=== PATIENT | female | born 1935 | race Caucasian/White ===

== ENCOUNTER 2019-11-22 13:20 | Outpatient (REF) | payer MEDICARE, SELFPAY ==
--- NOTE | 2019-11-22 | MM_ITS ---
EXAMINATION: MM DIAGNOSTIC DIGITAL BREAST TOMOSYNTHESIS, BILATERAL CLINICAL INFORMATION: Invasive ductal cancer right breast status post lumpectomy 2017. Due for yearly. COMPARISON: Mammography: 11/04/2018, 08/19/2017, 03/12/2017, 06/26/2016, 05/26/2016, 05/21/2016 TECHNIQUE: Digital breast tomosynthesis is performed in both the craniocaudal and mediolateral oblique views along with computer-aided detection (CAD). Synthesized 2D images are generated from the tomosynthesis. Additional magnification right CC and magnification right ML views are obtained. FINDINGS: There are scattered areas of fibroglandular density (ACR BI-RADS breast composition Category b). There are post therapy changes right breast with mild reduced breast size and stable scarring. There is no recurrent mass or architectural abnormality. The left breast shows no significant changes from prior studies. There are bilateral vascular calcifications. Two groups of fine tightly grouped calcifications again seen on right adjacent to the vascular calcifications upper outer breast, similar to prior exams. Results are provided to the patient at time of visit by the technologist. IMPRESSION: No significant changes from prior studies. Post therapy changes right breast. ASSESSMENT: BI-RADS 2: Benign RECOMMENDATION: Routine annual mammography screening. This patient's information was entered into a reminder system with a target due date for their next mammogram.
== END 2019-11-22 13:21 | disposition home or self-care (01) ==
LOC: HO.MAMMO 13:20
PROVIDERS: PCP Internal Medicine; Visit Provider Internal Medicine
DX: C50.911 Malignant neoplasm of unspecified site of right female breast (principal)
CPT/HCPCS: 77062; 77066; 78013

== ENCOUNTER 2020-01-19 13:43 | Outpatient (REF) | payer MEDICARE, SELFPAY ==
[2020-01-19 13:59] LABS: MANUAL DIFF FLAG NO
[2020-01-19 14:12] LABS: Basophils Percent Auto 0.6 % (0-2); Eosinophils Absolute Auto 0.3 X10*3/uL (0.0-0.4); Eosinophils Percent Auto 4.7 % (0-4); Hematocrit 42.8 % (37-47); Hemoglobin 13.7 g/dl (12.0-16.0); Imm Gran Abs Auto 0.04 X10*3/uL (0.00-0.03); Imm Gran Pct Auto 0.6 % (0.0-0.4); Lymphocytes Absolute Auto 2.1 X10*3/uL (1.2-4.9); Lymphocytes Percent Auto 30.7 % (20-40); Mean Corpuscular Hemoglobin 30.1 pg (27.0-33.0); Mean Corpuscular Volume 94.1 fL (80-98); Monocytes Absolute Auto 0.7 X10*3/uL (0.1-1.2); Monocytes Percent Auto 10.3 % (2-11); Neutrophils Absolute Auto 3.6 X10*3/uL (2.0-8.3); Neutrophils Percent Auto 53.1 % (45-73); Platelet Count 254 X10*3/uL (160-400); Red Blood Count 4.55 X10*6/uL (4.20-5.50); Red Cell Distribution Width 13.7 % (11.0-16.0); White Blood Count 6.8 X10*3/uL (4.8-10.8)
[2020-01-19 14:24] LABS: Estimated Average Glucose 203 mg/dL; Hemoglobin A1c % 8.7 %
[2020-01-19 15:00] LABS: Alanine Aminotransferase 19 U/L (0-31); Albumin Level 4.1 g/dL (3.5-5.0); Alkaline Phosphatase 97 U/L (39-117); Anion Gap 14 (12-20); Aspartate Amino Transferase 19 U/L (5-31); Bilirubin Total 0.5 mg/dL (0.0-1.0); Blood Urea Nitrogen 18 mg/dL (9-16); Calcium 9.4 mg/dL (8.4-10.2); Carbon Dioxide 25 mmol/L (22-29); Chloride 105 mmol/L (96-108); Cholesterol 258 mg/dL; Estimated Glomerular Filt Rate 42; Glucose Fasting 129 mg/dL (60-99); HDL Cholesterol 67 mg/dL; LDL Cholesterol Calculated 164 mg/dl; Potassium 4.3 mmol/l (3.3-5.1); Sodium 140 mmol/L (135-145); Triglycerides 138 mg/dL
[2020-01-19 15:24] LABS: Thyroid Stimulating Hormone 3.35 uIU/mL (0.32-4.0)
== END 2020-01-19 13:44 | disposition home or self-care (01) ==
LOC: HO.LNP 13:43
PROVIDERS: Visit Provider Internal Medicine
DX: E11.9 Type 2 diabetes mellitus without complications (principal); N39.41 Urge incontinence; I10 Essential (primary) hypertension; E03.9 Hypothyroidism, unspecified; F51.01 Primary insomnia
CPT/HCPCS: 36415; 80053; 80061; 83036; 84443; 85025

== ENCOUNTER 2020-01-22 13:56 | Outpatient (REF) | payer MEDICARE, SELFPAY ==
[2020-01-22 14:06] LABS: Glucose Urine UA NEG (NEG); Leukocyte Esterase Urine 3+ (NEG); Nitrite Urine NEG (NEG); Urine Blood 2+ (NEG); Urine Ketones NEG (NEG); Urine Protein NEG (NEG-TRACE)
[2020-01-22 14:13] LABS: Appearance Urine CLEAR; Color Urine YELLOW
[2020-01-22 14:24] LABS: Bacteria Urine 4+ /LPF; Squamous Epithelial Cell Urine 1+ /LPF
[2020-01-22 14:33] LABS: Creatinine Urine 58.34 mg/dL; Microalbum/Creatinine Ratio Ur 152.5 ug/mg cr
== END 2020-01-22 13:57 | disposition home or self-care (01) ==
LOC: HO.LNP 13:56
PROVIDERS: Visit Provider Internal Medicine
DX: N39.0 Urinary tract infection, site not specified (principal); E11.9 Type 2 diabetes mellitus without complications
CPT/HCPCS: 81001; 81003; 82043; 87086

== ENCOUNTER 2020-05-15 14:57 | Outpatient (REF) | payer MEDICARE, SELFPAY | END 2020-05-15 14:58 | disposition home or self-care (01) | LOC: HO.LAB 14:57 | PROVIDERS: PCP Internal Medicine; Visit Provider Surgery | DX: C44.529 Squamous cell carcinoma of skin of other part of trunk (principal) | CPT/HCPCS: 11403; 11603; 88305; 99202 ==

== ENCOUNTER 2020-05-27 14:08 | Outpatient (REF) | payer MEDICARE, SELFPAY ==
[2020-05-27 14:12] LABS: MANUAL DIFF FLAG NO
[2020-05-27 14:20] LABS: Basophils Absolute Auto 0.1 X10*3/uL (0.0-0.2); Basophils Percent Auto 0.8 % (0-2); Eosinophils Absolute Auto 0.3 X10*3/uL (0.0-0.4); Eosinophils Percent Auto 3.4 % (0-4); Hematocrit 41.8 % (37-47); Hemoglobin 13.8 g/dl (12.0-16.0); Imm Gran Abs Auto 0.06 X10*3/uL (0.00-0.03); Imm Gran Pct Auto 0.8 % (0.0-0.4); Lymphocytes Absolute Auto 1.6 X10*3/uL (1.2-4.9); Lymphocytes Percent Auto 20.8 % (20-40); Mean Corpuscular Hemoglobin 30.1 pg (27.0-33.0); Mean Corpuscular Volume 91.1 fL (80-98); Monocytes Absolute Auto 0.7 X10*3/uL (0.1-1.2); Monocytes Percent Auto 8.9 % (2-11); Neutrophils Absolute Auto 5.2 X10*3/uL (2.0-8.3); Neutrophils Percent Auto 65.3 % (45-73); Platelet Count 285 X10*3/uL (160-400); Red Blood Count 4.59 X10*6/uL (4.20-5.50); Red Cell Distribution Width 13.5 % (11.0-16.0); White Blood Count 7.9 X10*3/uL (4.8-10.8)
[2020-05-27 15:05] LABS: Alanine Aminotransferase 19 U/L (0-31); Albumin Level 4.2 g/dL (3.5-5.0); Alkaline Phosphatase 88 U/L (39-117); Anion Gap 18 (12-20); Aspartate Amino Transferase 16 U/L (5-31); Bilirubin Total 0.7 mg/dL (0.0-1.0); Blood Urea Nitrogen 21 mg/dL (9-16); Calcium 9.2 mg/dL (8.4-10.2); Carbon Dioxide 20 mmol/L (22-29); Chloride 100 mmol/L (96-108); Estimated Glomerular Filt Rate 37; Glucose Random 293 mg/dL (60-115); Potassium 4.1 mmol/L (3.3-5.1); Sodium 134 mmol/L (135-145); Total Protein 7.4 g/dL (6.5-8.0)
== END 2020-05-27 14:09 | disposition home or self-care (01) ==
LOC: HO.LNP 14:08
PROVIDERS: Visit Provider Internal Medicine
DX: E11.9 Type 2 diabetes mellitus without complications (principal); N39.0 Urinary tract infection, site not specified; R41.0 Disorientation, unspecified; I10 Essential (primary) hypertension
CPT/HCPCS: 80053; 85025

== ENCOUNTER 2020-06-04 12:19 | Outpatient (REF) | payer SELFPAY | END 2020-06-04 12:20 | disposition home or self-care (01) | LOC: HO.HAP 12:19 | PROVIDERS: Visit Provider Internal Medicine | DX: Z46.1 Encounter for fitting and adjustment of hearing aid (principal) | CPT/HCPCS: 99499 ==

== ENCOUNTER 2020-07-02 13:34 | Outpatient (REF) | payer MEDICARE, SELFPAY ==
[2020-07-02 14:36] LABS: TSH reflex Free T4 2.83 uIU/mL (0.32-4.0)
== END 2020-07-02 13:35 | disposition home or self-care (01) ==
LOC: HO.LNP 13:34
PROVIDERS: Visit Provider Internal Medicine
DX: E03.9 Hypothyroidism, unspecified (principal)
CPT/HCPCS: 84443

== ENCOUNTER 2020-07-08 12:36 | Outpatient (REF) | payer MEDICARE, SELFPAY ==
--- NOTE | 2020-07-10 08:52 | MHC.AU.AHA ---
Adult Audiological Evaluation Date of Visit: 07/08/20 Reason for Appointment: History of hearing loss. Patient arrives to determine if there has been a change in hearing. Her daughter reports that the left hearing aid is no longer working. Previous Hearing Test Results: At this clinic on 07/13/2018- Moderate to severe sensorineural hearing loss bilaterally. Ear History: Recent Ear Pain: None Reported Recent Ear Infections: None Reported Medical History: Medical History: Diabetes, Hypertension Hearing Instrument History- Right Ear: Lacemaker: Phonak Model: [id number] Q50-312 Serial Number: [id number] Battery Size: 312 Repair Warranty: 04/14/2014 Loss and Damage Warranty: 04/14/2014 Dispensed By: [facility] Date of Fittin03/30/2012 Hearing Instrument History- Left Ear: Lacemaker: Phonak Model: Virto Q50-312 Serial Number: [id number] Battery Size: 312 Warranty: 04/14/2014 Loss and Damage Warranty: 04/14/2014 Dispensed By: [facility] Date of Fittin03/30/2012 Otoscopy: Right Ear: Unremarkable Left Ear: Unremarkable Hearing Evaluation: Transducer(s) Used: Circumaural Headphones Method: Conventional Audiometry Stimuli Used: Pure Tones Right Ear: Description of Hearing: Moderately-severe to severe sensorineural hearing loss Left Ear: Description of Hearing: Moderately-severe to severe sensorineural hearing loss Speech Recognition Threshold (SRT): Method Used: Recorded Lists Stimuli Used: Spondee Words Right Ear: 75 dBHL Left Ear: 75 dBHL Word Discrimination: Method: Recorded Lists Word Lists Used: NU-6 Right Ear: 76% at 90 dBHL Left Ear: 96% at 90 dBHL Most Comfortable Level (MCL): Right Ear: 90 dBHL Left Ear: 90 dBHL Aided Testing: Not performed today, as left hearing aid is not working Comparison: Compared to most recent evaluation: No significant changes noted. Recommendations: Audiological re-evaluation in one year. Patient's daughter reports that the left hearing aid is no longer working. It could be not inspected today, as it was not at the appointment. Hearing aid maintenance was performed on the right hearing aid. The right hearing aid is working, but is missing its program button and one of the microphone covers. The hearing aids are 8 years old, and no longer covered under the repair warranty. Patient appeared to be experiencing significant difficulty following along in conversation wearing only the right hearing aid. This may be, in part, because the word discrimination/clarity of the right ear is worse than the left (76% in the right versus 96% in the left). Resuming use of left-sided amplification is highly recommended, as the clarity is better in the left ear. Patient may be interested in obtaining a new pair of hearing aids, but was not ready to discuss this today. Brochures were provided on some of the latest models. If interested, they are welcome to schedule a hearing aid evaluation to further discuss hearing aid options. Diagnosis: Primary Diagnosis: H90.3 Bilateral Sensorineural Hearing Loss Services Performed: Comprehensive Audiological Evaluation (CPT 71040) Signature: Provider: David Loya, CCC-A
== END 2020-07-08 12:37 | disposition home or self-care (01) ==
LOC: HO.SH 12:36
PROVIDERS: Visit Provider Internal Medicine
DX: H90.3 Sensorineural hearing loss, bilateral (principal)
CPT/HCPCS: 92557

== ENCOUNTER 2020-07-19 14:38 | Outpatient (REF) | payer SELFPAY ==
--- NOTE | 2020-07-19 15:26 | MHC.AU.MED ---
Medical Clearance for Hearing Instrumentation Date: 07/19/20 Patient Name: Triny Bush Date of : 1935 Referring Provider: Virgil Saldana MD We have seen your patient on 07/19/20 and have determined that they are a candidate for amplification (See accompanying report). Specifically, they would benefit from: Hearing aid use in both ears There is a statute that addresses Medical Evaluation Requirements prior to fitting a patient with a hearing aid. According to [place] statute 265 CMR:6.03(1), (a) General. Except as provided in 265 CMR 6.03(1)(b), a mesh cutter shall not sell a hearing aid unless the prospective user has presented to the mesh cutter a written statement signed by a licensed physician that states that the patient's hearing loss has been medically evaluated and the patient may be considered a candidate for a hearing aid. The medical evaluation must have taken place within the preceding six months. Please note: Due to the [place] Statute referenced above, we cannot accept a signature other than that of a licensed physician. PROCESS CONTROL BOARD OPERATOR and PA signatures cannot be accepted. I am in agreement with the above recommendation. There is no medical contraindication for hearing instrumentation. Physician Signature Date Physician Name (Printed)
--- NOTE | 2020-07-19 17:11 | MHC.AU.HAS ---
Hearing Aid Evaluation Date of Visit: 07/19/20 Historical Information: Description of Hearing: Moderately severe to severe sensorineural hearing loss bilaterally. Current personal amplification information, if applicable: Phonak Virto Q50-312 Summary: Patient is interested in updated hearing aids. Her left aid doesn't work and the right aid is damaged. Would like to stay with a similar Phonak model with batteries. Hearing Aid Prescription: Based on the individual?s shared listening needs, communication environments, dexterity, desire for connectivity, and personal preferences, the following prescription for amplification has been made: Right ear: Stem Setter: Phonak Model: Virto M50-312 Battery Size: 312 Color: [place] Marketer: Super Power Left ear: Left ear prescription to be same as Right Hearing Aid above: Stem Setter: Phonak Model: Virto M50-312 Battery Size: 312 Color: [place] [employer] Marketer: Super power Plan of Care: Patient wishes to purchase hearing aids as prescribed Action Taken/Action Needed: [place] Impressions Taken. Hearing Fitting to be scheduled when materials arrive. Paid $350 deposit. Primary Diagnosis: H90.3 Bilateral Sensorineural Hearing Loss Signature: Provider: David Ford, CCC-A
== END 2020-07-19 14:39 | disposition home or self-care (01) ==
LOC: HO.HAP 14:38
PROVIDERS: Visit Provider Internal Medicine
DX: Z46.1 Encounter for fitting and adjustment of hearing aid (principal); H90.3 Sensorineural hearing loss, bilateral
CPT/HCPCS: 92591

== ENCOUNTER 2020-08-08 14:56 | Outpatient (REF) | payer SELFPAY | END 2020-08-08 14:57 | disposition home or self-care (01) | LOC: HO.HAP 14:56 | PROVIDERS: Visit Provider Internal Medicine | DX: Z46.1 Encounter for fitting and adjustment of hearing aid (principal); H90.3 Sensorineural hearing loss, bilateral | CPT/HCPCS: V5260 ==

== ENCOUNTER 2020-08-28 13:09 | Outpatient (REF) | payer SELFPAY | END 2020-08-28 13:10 | disposition home or self-care (01) | LOC: HO.HAP 13:09 | PROVIDERS: Visit Provider Internal Medicine | DX: Z13.89 Encounter for screening for other disorder (principal) ==

== ENCOUNTER 2020-09-13 14:36 | Outpatient (REF) | payer SELFPAY | END 2020-09-13 14:37 | disposition home or self-care (01) | LOC: HO.HAP 14:36 | PROVIDERS: Visit Provider Internal Medicine | DX: Z13.89 Encounter for screening for other disorder (principal) ==

== ENCOUNTER 2020-11-27 10:44 | Outpatient (REF) | payer MEDICARE, SELFPAY ==
--- NOTE | ~2020-11-27 | MM_ITS ---
EXAMINATION: MM DIAGNOSTIC DIGITAL TOMOSYNTHESIS, BILATERAL US TARGETED BREAST, RIGHT CLINICAL INFORMATION: Status post right breast lumpectomy. Patient feels palpable abnormality right breast. COMPARISON: Mammography: 11/22/2019 and studies dating back to 03/15/2008. TECHNIQUE: Digital breast tomosynthesis is performed in both the craniocaudal and mediolateral oblique views along with computer-aided detection (CAD). Synthesized 2D images are generated from the tomosynthesis. Targeted right breast ultrasound. FINDINGS: The breasts are almost entirely fatty (ACR BI-RADS breast composition category A). There are no new significant masses, abnormal calcifications, or other abnormalities. Architectural distortion from previous right lumpectomy present. Targeted ultrasound evaluation to region of palpable abnormality demonstrates the palpable abnormality to correspond to previous surgical site and scarring with hypoechoic region with large amount of sound shadowing but with extension to the skin surface consistent with scar. Results are discussed with the patient at time of visit. MM/MM tomosynthesis diagnostic BI IMPRESSION: Palpable abnormality corresponds to surgical site within the right breast. ASSESSMENT: BI-RADS 2: Benign RECOMMENDATION: Routine annual mammography screening due in 12 months. This patient's information was entered into a reminder system with a target due date for their next mammogram.
--- NOTE | ~2020-11-27 | US_ITS ---
EXAMINATION: US DIAGNOSTIC ULTRASOUND BREAST, RIGHT CLINICAL INFORMATION: Right breast lump. Status post right lumpectomy.. COMPARISON: Mammography of same day as well as studies dating back to March 15, 2008. TECHNIQUE: Ultrasound of the breast is performed with real-time hsu scale imaging and color Doppler. FINDINGS: Targeted ultrasound evaluation to region of palpable abnormality demonstrates the palpable abnormality to correspond to previous surgical site and scarring with hypoechoic region with large amount of sound shadowing but with extension to the skin surface consistent with scar. Results are discussed with the patient at time of visit. US/US breast RT limited IMPRESSION: Palpable abnormality corresponds to surgical site within the right breast. ASSESSMENT: BI-RADS 2: Benign RECOMMENDATION: Routine annual mammography screening due in 12 months.
== END 2020-11-27 10:45 | disposition home or self-care (01) ==
LOC: HO.MAMMO 10:44
PROVIDERS: PCP Internal Medicine; Visit Provider Internal Medicine
DX: N63.0 Unspecified lump in unspecified breast (principal); Z85.3 Personal history of malignant neoplasm of breast
CPT/HCPCS: 76642; 77062; 77066

== ENCOUNTER 2020-12-10 10:05 | Outpatient (REF) | payer MEDICARE, SELFPAY ==
[2020-12-10 11:12] LABS: Appearance Urine CLOUDY; Color Urine YELLOW; Glucose Urine UA >=1000 MG/DL (NEG); Leukocyte Esterase Urine 2+ (NEG); Nitrite Urine NEG (NEG); Specific Gravity - Urine 1.015 (1.005-1.025); Urine Blood 2+ (NEG); Urine Ketones NEG (NEG); Urine Protein TRACE MG/DL (NEG-TRACE)
[2020-12-10 11:46] LABS: Bacteria Urine 2+ /LPF; Squamous Epithelial Cell Urine TRACE /LPF
== END 2020-12-10 10:06 | disposition home or self-care (01) ==
LOC: HO.LNP 10:05
PROVIDERS: Visit Provider Internal Medicine
DX: R32 Unspecified urinary incontinence (principal); Z51.89 Encounter for other specified aftercare
CPT/HCPCS: 81001; 87086

== ENCOUNTER 2021-05-01 10:26 | Outpatient (REF) | payer MEDICARE, SELFPAY ==
[2021-05-01 11:27] LABS: Appearance Urine CLOUDY; Color Urine YELLOW; Glucose Urine UA NEG (NEG); Leukocyte Esterase Urine 2+ (NEG); Nitrite Urine NEG (NEG); PH 5.5 (5.0-8.0); Urine Blood 1+ (NEG); Urine Ketones NEG (NEG); Urine Protein NEG (NEG-TRACE)
[2021-05-01 11:39] LABS: WBC Urine TNTC /HPF (0-4)
[2021-05-01 11:40] LABS: Bacteria Urine 2+ /LPF; Squamous Epithelial Cell Urine 2+ /LPF; WBC Clumps Urine NOTED
== END 2021-05-01 10:27 | disposition home or self-care (01) ==
LOC: HO.LNP 10:26
PROVIDERS: Visit Provider Internal Medicine
DX: N39.0 Urinary tract infection, site not specified (principal)
CPT/HCPCS: 81001; 81003; 87086

== ENCOUNTER 2021-05-20 11:35 | Outpatient (REF) | payer MEDICARE, SELFPAY ==
[2021-05-20 11:46] LABS: MANUAL DIFF FLAG NO
[2021-05-20 12:32] LABS: Basophils Absolute Auto 0.1 X10*3/uL (0.0-0.2); Basophils Percent Auto 0.8 % (0-2); Eosinophils Absolute Auto 0.2 X10*3/uL (0.0-0.4); Eosinophils Percent Auto 3.1 % (0-4); Hematocrit 40.1 % (37.0-47.0); Hemoglobin 12.2 g/dl (12.0-16.0); Imm Gran Abs Auto 0.05 X10*3/uL (0.00-0.03); Imm Gran Pct Auto 0.6 % (0.0-0.4); Lymphocytes Absolute Auto 1.3 X10*3/uL (1.2-4.9); Lymphocytes Percent Auto 16.5 % (20-40); Mean Corpuscular HGB Conc 30.4 g/dl (31.0-35.0); Mean Corpuscular Hemoglobin 29.2 pg (27.0-33.0); Mean Corpuscular Volume 95.9 fL (80.0-98.0); Mean Platelet Volume 8.9 fL (9.4-12.3); Monocytes Absolute Auto 0.8 X10*3/uL (0.1-1.2); Monocytes Percent Auto 10.5 % (2-11); Neutrophils Absolute Auto 5.3 x10*3/uL (2.0-8.3); Neutrophils Percent Auto 68.5 % (45-73); Platelet Count 280 X10*3/uL (160-400); Red Blood Count 4.18 X10*6/uL (4.20-5.50); Red Cell Distribution Width 13.8 % (11.0-16.0); White Blood Count 7.8 X10*3/uL (4.8-10.8)
[2021-05-20 12:41] LABS: Appearance Urine TURBID; Color Urine YELLOW; Glucose Urine UA NEG (NEG); Nitrite Urine NEG (NEG); Specific Gravity - Urine 1.015 (1.005-1.025); Urine Blood 2+ (NEG); Urine Ketones NEG (NEG); Urine Protein 2+ MG/DL (NEG-TRACE)
[2021-05-20 12:42] LABS: Leukocyte Esterase Urine 3+ (NEG)
[2021-05-20 12:56] LABS: WBC Urine TNTC /HPF (0-4)
[2021-05-20 12:57] LABS: Bacteria Urine 3+ /LPF
[2021-05-20 13:03] LABS: Alanine Aminotransferase 21 U/L (0-31); Albumin Level 3.6 g/dL (3.5-5.0); Alkaline Phosphatase 86 U/L (39-117); Anion Gap 15 (12-20); Aspartate Amino Transferase 20 U/L (5-31); Bilirubin Total 0.4 mg/dL (0.0-1.0); Blood Urea Nitrogen 32 mg/dL (9-16); Calcium 9.5 mg/dL (8.4-10.2); Carbon Dioxide 23 mmol/L (22-29); Chloride 105 mmol/L (96-108); Cholesterol 200 mg/dL; Estimated Glomerular Filt Rate 30; Glucose Fasting 147 mg/dL (60-99); HDL Cholesterol 61 mg/dL; LDL Cholesterol Calculated 121 mg/dl; Potassium 4.7 mmol/L (3.3-5.1); Sodium 138 mmol/L (135-145); Total Protein 6.8 g/dL (6.5-8.0); Triglycerides 93 mg/dL
[2021-05-20 13:11] LABS: Estimated Average Glucose 220 mg/dL; Hemoglobin A1c % 9.3 %
[2021-05-20 13:12] LABS: TSH reflex Free T4 0.26 uIU/mL (0.32-4.0)
[2021-05-20 13:51] LABS: Free T4 (Free Thyroxine) 1.21 ng/dL (0.71-1.85)
== END 2021-05-20 11:36 | disposition home or self-care (01) ==
LOC: HO.LNP 11:35
PROVIDERS: Visit Provider Internal Medicine
DX: E11.9 Type 2 diabetes mellitus without complications (principal); I10 Essential (primary) hypertension; E03.9 Hypothyroidism, unspecified
CPT/HCPCS: 80053; 80061; 81001; 81003; 83036; 84439; 84443; 85025; 87086

== ENCOUNTER 2021-06-10 10:42 | Outpatient (REF) | payer MEDICARE, SELFPAY ==
[2021-06-10 12:20] LABS: Appearance Urine TURBID; Color Urine YELLOW; Glucose Urine UA 100 MG/DL (NEG); Leukocyte Esterase Urine 3+ (NEG); Nitrite Urine NEG (NEG); Specific Gravity - Urine <= 1.005 (1.005-1.025); Urine Blood 3+ (NEG); Urine Ketones NEG (NEG); Urine Protein 1+ MG/DL (NEG-TRACE)
[2021-06-10 13:34] LABS: Bacteria Urine 4+ /LPF; Squamous Epithelial Cell Urine 1+ /LPF; WBC Urine TNTC /HPF (0-4)
== END 2021-06-10 10:43 | disposition home or self-care (01) ==
LOC: HO.LNP 10:42
PROVIDERS: Visit Provider Internal Medicine
DX: N39.0 Urinary tract infection, site not specified (principal)
CPT/HCPCS: 81001; 81003; 87086; 87088; 87186

== ENCOUNTER → 2021-06-18 14:31 | Outpatient (BNVA) | payer MEDICARE, SELFPAY | PROVIDERS: PCP Internal Medicine; Referring Provider Internal Medicine; Visit Provider Surgery | DX: L98.9 Disorder of the skin and subcutaneous tissue, unspecified (principal); E11.65 Type 2 diabetes mellitus with hyperglycemia; I10 Essential (primary) hypertension; Z87.440 Personal history of urinary (tract) infections; Z85.3 Personal history of malignant neoplasm of breast | CPT/HCPCS: 99212 ==

== ENCOUNTER 2021-06-24 10:41 | Outpatient (REF) | payer MEDICARE, SELFPAY ==
[2021-06-24 12:06] LABS: Appearance Urine CLOUDY; Color Urine YELLOW; Glucose Urine UA >=1000 MG/DL (NEG); Nitrite Urine NEG (NEG); Urine Blood 3+ (NEG); Urine Ketones NEG (NEG); Urine Protein 2+ MG/DL (NEG-TRACE)
[2021-06-24 12:09] LABS: Leukocyte Esterase Urine 3+ (NEG)
[2021-06-24 12:21] LABS: Squamous Epithelial Cell Urine TRACE /LPF; WBC Clumps Urine NOTED; WBC Urine TNTC /HPF (0-4)
[2021-06-24 12:22] LABS: Bacteria Urine 3+ /LPF
[2021-06-24 12:23] LABS: RBC Urine 0 /HPF (0)
== END 2021-06-24 10:42 | disposition home or self-care (01) ==
LOC: HO.LNP 10:41
PROVIDERS: Visit Provider Internal Medicine
DX: Z13.89 Encounter for screening for other disorder (principal)
CPT/HCPCS: 81001; 87086

== ENCOUNTER 2021-06-24 17:20 | Inpatient (IN) | payer MEDICARE, SELFPAY ==
--- NOTE | ~2021-06-24 | XR_ITS ---
EXAMINATION: XR CHEST CLINICAL INFORMATION: Mental status change COMPARISON: Multiple prior studies. Most recent Chest x-ray 03/22/2017 TECHNIQUE: Frontal portable view of the chest was obtained. 6:18 PM FINDINGS: Lungs are clear. No pulmonary vascular congestion. There is no pleural effusion. The heart size is normal. The cardiac and mediastinal contours are normal. Chronic ovoid calcification right paratracheal soft tissues consistent with calcification in the thyroid. No change since chest x-ray 12/08/2014. There are calcifications of the thoracic aorta. There are multilevel degenerative changes of dorsal spine. Surgical clips in the soft tissues over the right axilla. XR/XR chest 1V IMPRESSION: No acute abnormality of the chest.
--- NOTE | ~2021-06-24 | CT_ITS ---
EXAMINATION: CT HEAD WITHOUT CONTRAST CLINICAL INFORMATION: AMS. COMPARISON: 03/22/2017. TECHNIQUE: Contiguous axial imaging was performed from the skull base to vertex without intravenous administration of contrast. This CT examination was performed using dose optimization techniques as appropriate, variously including the following: *Automated exposure control *Adjustment of mA and/or kV according to patient size (this includes techniques or standardized protocols for targeted exams where dose is matched to indication/reason for exam; i.e. extremities or head) *Use of iterative reconstruction technique DLP: 814 mGy-cm. FINDINGS: There is no evidence of acute intracranial hemorrhage or acute territorial infarction. No abnormal mass effect or midline shift is seen. [place] to white matter differentiation is well preserved. No extra-axial fluid collections are identified. The ventricles, sulci, and cisterns are prominent consistent with generalized atrophy. There is again noted to be a large amount of periventricular white matter, low density, consistent with microangiopathy. There also appears to be some bilateral lacunar infarcts involving the anterior limbs of the internal capsules as well as a small left caudate head lacunar infarct. Prominent arterial calcifications are seen. The osseous structures and soft tissues are normal. The mastoid air cells and visualized portions of the paranasal sinuses are well aerated. CT/CT head/brain wo con IMPRESSION: No acute intracranial pathology. Stable findings of microangiopathy and atrophy.
[2021-06-24 17:42] VITALS: BP 124/69; BP 151/69; PULSE 79; PULSE 84; RESP 26; O2SAT 97; O2SAT 99; BMI 32.9
[2021-06-24 17:49] VITALS: TEMP 36.4
--- NOTE | 2021-06-24 18:01 | ECG_ITS ---
Test Reason : AMS Blood Pressure : / mmHG Vent. Rate : 079 BPM Atrial Rate : 079 BPM P-R Int : 176 ms QRS Dur : 068 ms QT Int : 422 ms P-R-T Axes : 000 004 006 degrees QTc Int : 483 ms Normal sinus rhythm Normal ECG When compared with ECG of 22-MAR-2017 06:23, Premature supraventricular complexes are no longer Present ST no longer depressed in Anterolateral leads Nonspecific T wave abnormality, improved in Inferior leads Nonspecific T wave abnormality no longer evident in Lateral leads Referred By: Saira Echevarria Electronically Signed By:DONTRELL CANALES MD
--- NOTE | 2021-06-24 18:03 | ED_ITS ---
HPI - General Adult General Chief complaint: General Medical <Saira Echevarria MD - Last Filed: 06/24/21 20:41> Stated complaint: ams, uti <Saira Echevarria MD - Last Filed: 06/24/21 20:41> Time Seen by Provider: 06/24/21 18:00 <Saira Echevarria MD - Last Filed: 06/24/21 20:41> Source: patient, family (Daughter) and EMS <Saira Echevarria MD - Last Filed: 06/24/21 20:41> Mode of arrival: EMS <Saira Echevarria MD - Last Filed: 06/24/21 20:41> Limitations: no limitations <Saira Echevarria MD - Last Filed: 06/24/21 20:41> History of Present Illness HPI narrative: 86-year-old female brought in for evaluation of acute mental status change. Patient lives home with her daughter, patient is known to have chronic UTI, reportedly by the family patient became belligerent throwing things on her daughter, family think patient is been having undiagnosed dementia that been fluctuating up and down, patient otherwise declines any headache or neck pain, no chest pain, no shortness of breath. No fever or chills. <Saira Echevarria MD - Last Filed: 06/24/21 20:41> Related Data Home medications: Home Medications Medication Instructions Recorded Confirmed bupropion HCl 150 mg tablet,12 hr 150 mg PO BID 05/15/20 06/18/21 sustained-release lorazepam 0.5 mg tablet 0.5 mg PO BID PRN 05/15/20 06/18/21 lorazepam 1 mg tablet 1 mg PO BEDTIME PRN 05/15/20 06/18/21 pen needle, diabetic 32 gauge x #50 ea 05/15/20 05/15/20 trazodone 50 mg tablet 50 mg PO BEDTIME 05/15/20 05/15/20 cefuroxime axetil 125 mg tablet 100 mg PO BID tab 06/18/21 06/18/21 escitalopram oxalate 20 mg tablet 20 mg PO DAILY 06/18/21 06/18/21 insulin glargine 100 unit/mL (3 20 unit SUBCUT DAILY ml 06/18/21 06/18/21 mL) subcutaneous pen insulin lispro 100 unit/mL 1 sliding scale dose SUBCUT 06/18/21 06/18/21 subcutaneous solution (Humalog USEASDIRECTD U-100 Insulin) loperamide 2 mg capsule (Imodium 2 mg PO BID cap 06/18/21 06/18/21 A-D) melatonin 3 mg capsule 3 mg PO BEDTIME PRN 06/18/21 06/18/21 <Saira Echevarria MD - Last Filed: 06/24/21 20:41> Allergies/adverse reactions: Allergies Allergy/AdvReac Type Severity Reaction Status Date / Time Penicillins Allergy Severe RASH AND Verified 05/15/20 15:21 ITCHY lisinopril [LISINOPRIL] Allergy Intermediate COUGH, Verified 05/15/20 15:21 tickle cough nitrofurantoin Allergy Unknown UNKNOWN Verified 05/15/20 15:21 [NITROFURANTOIN] ciprofloxacin [From Cipro] AdvReac Severe NAUSEA Verified 05/15/20 15:21 atorvastatin [From Lipitor] AdvReac Mild MUSCLE Verified 05/15/20 15:21 CRAMPS <Saira Echevarria MD - Last Filed: 06/24/21 20:41> Review of Systems Review of Systems: All other systems are reviewed and are negative Constitutional: Reports as per HPI and Reports no additional constitutional complaints Eyes: Reports as per HPI and Reports no additional eye complaints Reports system reviewed and no additional complaints, except as documented Cardiovascular: Reports as per HPI and Reports no additional cardiovascular complaints Respiratory: Reports as per HPI and Reports no additional respiratory complaints Gastrointestinal: Reports as per HPI and Reports no additional gastrointestinal complaints Genitourinary: Reports no additional female genitourinary complaints Musculoskeletal: Reports no additional musculoskeletal complaints Skin/Breast: Reports system reviewed and no additional complaints, except as docu Psychiatric: Reports no additional psychiatric complaints Endocrine: Reports no additional endocrine complaints Hematologic/Lymphatic: Reports no additional hematologic/lymphatic complaints Allergic/Immunologic: Reports no additional allergic/immunologic complaints Reports system reviewed and no additional complaints, except as documented and Reports Abnormal speech present <Saira Echevarria MD - Last Filed: 06/24/21 20:41> [facility] Past Medical History Medical History: Medical History (Updated 06/24/21 @ 20:41 by Saira Echevarria MD) Diabetes mellitus type 2 in nonobese H/O recurrent urinary tract infection History of right breast cancer Hypercholesterolemia Hypertension Skin lesion of chest wall Urinary incontinence <Saira Echevarria MD - Last Filed: 06/24/21 20:41> Surgical History: Surgical History History of lumpectomy of right breast History of lymph node biopsy <Saira Echevarria MD - Last Filed: 06/24/21 20:41> Family History Family History: Family History (Updated 06/18/21 @ 14:58 by Dread Torres, RN) Father Colon cancer Mother Diabetes <Saira Echevarria MD - Last Filed: 06/24/21 20:41> Social History Social History: Social History (Updated 06/18/21 @ 15:03 by Dread Torres RN) Alcohol intake: never Patient Tobacco Use Status: Never used Tobacco Use of substances other than those prescribed or required for medical reasons: No Advance Directives: No <Saira Echevarria MD - Last Filed: 06/24/21 20:41> Physical Exam ED Vital Signs: Vital Signs - 24 hr 06/24/21 17:42 06/24/21 17:49 06/24/21 19:36 Temperature 97.5 F 97.7 F Pulse Rate 79 88 Respiratory Rate 26 H 13 Blood Pressure 151/69 H 163/78 H Pulse Oximetry 97 100 06/24/21 19:53 Temperature Pulse Rate Respiratory Rate 14 Blood Pressure Pulse Oximetry BMI result Body Mass Index 32.9 Vital signs have been reviewed as appeared to be correct. Blood pressure normal. Heart rate normal. Respiration rate normal. Temperature normal. Oxygen saturation normal. <Saira Echevarria MD - Last Filed: 06/24/21 20:41> Appearance: Alert. Oriented X3. No acute distress. Head: Normal external exam. Normocephalic. Atraumatic. No Cagle signs noted. No raccoon eyes noted Eyes: PERRLA. EOMI. Conjunctiva and sclera normal. Eyelids normal. ENT: TM's Normal. Pharynx normal. Uvula midline. Moist mucous membranes. No trismus noted. No drooling noted. No muffled voice noted. Neck: Normal inspection. Neck supple. FROM. No adenopathy. Thyroid Normal. No meningeal signs. No neck mass noted. CVS: Normal heart rate and rhythm. Heart sound normal. No murmurs noted. Pulses normal throughout. Respiratory: No respiratory distress. Painless inspiration. Breath sounds normal. No wheezes/rales/rhonchi noted. Chest nontender. No accessory muscle usage noted or decreased air movement noted. Abdomen: Soft and nontender. Bowel sounds normal in all 4 quadrants. No distention noted. No organomegaly noted. No visible injury noted. Back: No CVA tenderness. Full range of motion noted. Skin: Skin warm and dry. Normal skin color. Normal skin turgor. No rashes/lesions/lacerations noted. Extremities: No lower extremity edema. Extremities exhibit normal range of motion. Extremities nontender. Neuro: Oriented X 3. Cranial nerve exam: II-XII are grossly intact No motor deficit. No sensory deficit. Reflexes normal. <Saira Echevarria MD - Last Filed: 06/24/21 20:41> Course Course Course Narrative: Assessment and plan. 86-year-old female history of chronic UTI, failed outpatient p.o. antibiotic, patient will be given IV Levaquin and awaiting for urine culture, patient also showing acute mental status change patient is more belligerent with family. Admit for IV Levaquin. <Saira Echevarria MD - Last Filed: 06/24/21 20:41> Medical Decision Making Lab Data Lab results reviewed: Yes I reviewed the patient's lab results. <Saira Echevarria MD - Last Filed: 06/24/21 20:41> Result diagrams: : 06/24/21 18:13 06/24/21 18:13 <Saira Echevarria MD - Last Filed: 06/24/21 20:41> Labs: Lab Results 06/24/21 06/24/21 06/24/21 Range/Units 18:13 18:13 18:13 WBC 11.0 H (4.8-10.8) X10*3/uL RBC 4.15 L (4.20-5.50) X10*6/uL Hgb 12.3 (12.0-16.0) g/dl Hct 37.0 (37.0-47.0) % MCV 89.2 (80.0-98.0) fL MCH 29.6 (27.0-33.0) pg MCHC 33.2 (31.0-35.0) g/dl RDW 13.4 (11.0-16.0) % Plt Count 314 (160-400) X10*3/uL MPV 8.7 L (9.4-12.3) fL Immature Gran % (Auto) 0.6 H (0.0-0.4) % Neut % (Auto) 65.9 (45-73) % Lymph % (Auto) 21.8 (20-40) % [place] % (Auto) 8.8 (2-11) % Eos % (Auto) 2.4 (0-4) % Baso % (Auto) 0.5 (0-2) % Lymph # (Auto) 2.4 (1.2-4.9) X10*3/uL [place] # (Auto) 1.0 (0.1-1.2) X10*3/uL Eos # (Auto) 0.3 (0.0-0.4) X10*3/uL Baso # (Auto) 0.1 (0.0-0.2) X10*3/uL Abs Immat Gran (auto) 0.07 H (0.00-0.03) X10*3/uL Absolute Neuts (auto) 7.2 (2.0-8.3) x10*3/uL Absolute Nucleated RBC 0.000 (0.0-0.012) X10*3/uL Nucleated RBC % (auto) 0.0 (0.0-0.2) /100WBC Sodium 136 (135-145) mmol/L Potassium 4.1 (3.3-5.1) mmol/L Chloride 105 (96-108) mmol/L Carbon Dioxide 17 L (22-29) mmol/L Anion Gap 18 (12-20) BUN 25 H (9-16) mg/dL Creatinine 1.71 H (0.5-1.4) mg/dL Estim Creat Clear Calc 23.4 Estimated GFR 28 Random Glucose 175 H (60-115) mg/dL Lactic Acid (0.5-2.0) mmol/L Calcium 9.7 (8.4-10.2) mg/dL Total Bilirubin 0.3 (0.0-1.0) mg/dL Direct Bilirubin 0.2 (0.0-0.5) mg/dL AST 17 (5-31) U/L ALT 18 (0-31) U/L Alkaline Phosphatase 109 D (39-117) U/L Troponin I High Sens 6.6 (<3.5-17.0) ng/L B-Natriuretic Peptide 68 (<100) pg/mL Total Protein 7.2 (6.5-8.0) g/dL Albumin 3.8 (3.5-5.0) g/dL Lipase 57 (8-78) U/L Urine Color Urine Appearance Urine pH (5.0-8.0) Ur Specific [place] (1.005-1.025) Urine Protein (NEG-TRACE) MG/DL Urine Glucose (UA) (NEG) MG/DL Urine Ketones (NEG) MG/DL Urine Blood (NEG) Urine Nitrite (NEG) Ur Leukocyte Esterase (NEG) Urine RBC (0) /HPF Urine WBC (0-4) /HPF Urine WBC Clumps Ur Squamous Epith Cells /LPF Urine Bacteria /LPF 06/24/21 06/24/21 Range/Units 18:13 19:13 WBC (4.8-10.8) X10*3/uL RBC (4.20-5.50) X10*6/uL Hgb (12.0-16.0) g/dl Hct (37.0-47.0) % MCV (80.0-98.0) fL MCH (27.0-33.0) pg MCHC (31.0-35.0) g/dl RDW (11.0-16.0) % Plt Count (160-400) X10*3/uL MPV (9.4-12.3) fL Immature Gran % (Auto) (0.0-0.4) % Neut % (Auto) (45-73) % Lymph % (Auto) (20-40) % [place] % (Auto) (2-11) % Eos % (Auto) (0-4) % Baso % (Auto) (0-2) % Lymph # (Auto) (1.2-4.9) X10*3/uL [place] # (Auto) (0.1-1.2) X10*3/uL Eos # (Auto) (0.0-0.4) X10*3/uL Baso # (Auto) (0.0-0.2) X10*3/uL Abs Immat Gran (auto) (0.00-0.03) X10*3/uL Absolute Neuts (auto) (2.0-8.3) x10*3/uL Absolute Nucleated RBC (0.0-0.012) X10*3/uL Nucleated RBC % (auto) (0.0-0.2) /100WBC Sodium (135-145) mmol/L Potassium (3.3-5.1) mmol/L Chloride (96-108) mmol/L Carbon Dioxide (22-29) mmol/L Anion Gap (12-20) BUN (9-16) mg/dL Creatinine (0.5-1.4) mg/dL Estim Creat Clear Calc Estimated GFR Random Glucose (60-115) mg/dL Lactic Acid 1.7 (0.5-2.0) mmol/L Calcium (8.4-10.2) mg/dL Total Bilirubin (0.0-1.0) mg/dL Direct Bilirubin (0.0-0.5) mg/dL AST (5-31) U/L ALT (0-31) U/L Alkaline Phosphatase (39-117) U/L Troponin I High Sens (<3.5-17.0) ng/L B-Natriuretic Peptide (<100) pg/mL Total Protein (6.5-8.0) g/dL Albumin (3.5-5.0) g/dL Lipase (8-78) U/L Urine Color YELLOW Urine Appearance TURBID Urine pH 5.5 (5.0-8.0) Ur Specific [place] 1.010 (1.005-1.025) Urine Protein 1+ H (NEG-TRACE) MG/DL Urine Glucose (UA) NEG (NEG) MG/DL Urine Ketones NEG (NEG) MG/DL Urine Blood 3+ H (NEG) Urine Nitrite NEG (NEG) Ur Leukocyte Esterase 3+ H (NEG) Urine RBC 5-9 H (0) /HPF Urine WBC TNTC H (0-4) /HPF Urine WBC Clumps NOTED Ur Squamous Epith Cells TRACE /LPF Urine Bacteria TRACE /LPF <Saira Echevarria MD - Last Filed: 06/24/21 20:41> Imaging Data Chest x-ray: Attestation: I personally reviewed and interpreted this imaging study as follows: <Saira Echevarria MD - Last Filed: 06/24/21 20:41> Radiologist's impression: No acute abnormalities of the chest. <MD Cata Williamson Last Filed: 06/24/21 20:41> ECG Data Attestation: I personally reviewed and interpreted this ECG as follows: <Saira Echevarria MD - Last Filed: 06/24/21 20:41> Interpretation: Normal sinus rhythm at 79 beats per minute, normal intervals, no ST-T changes. <MD Cata Williamson Last Filed: 06/24/21 20:41> Discharge Plan Discharge Clinical Impression: Acute UTI, Altered mental status <MD Cata Williamson Last Filed: 06/24/21 20:41> Patient Disposition: Admitted As Inpatient <Saira Echevarria MD - Last Filed: 06/24/21 20:41> Prescriptions: No Action lorazepam 0.5 mg tablet 0.5 mg PO BID PRN (Reason: anxiety) 0RF trazodone 50 mg tablet 50 mg PO BEDTIME 0RF bupropion HCl 150 mg tablet sustained-release 12 hr 150 mg PO BID 0RF (DME) pen needle, diabetic 32 gauge x 5/32 needle See Rx Instructions ea .ROUTE QID Qty: 50 0RF Rx Instructions: As directed lorazepam 1 mg tablet 1 mg PO BEDTIME PRN0RF insulin glargine 100 unit/mL (3 mL) insulin pen 20 unit subcut DAILY 0RF insulin lispro [Humalog U-100 Insulin] 100 unit/mL solution 1 sliding scale dose subcut USEASDIRECTD 0RF melatonin 3 mg capsule 3 mg PO BEDTIME PRN0RF cefuroxime axetil 125 mg tablet 100 mg PO BID 0RF loperamide [Imodium A-D] 2 mg capsule 2 mg PO BID 0RF escitalopram oxalate 20 mg tablet 20 mg PO DAILY 0RF <MD Cata Williamson Last Filed: 06/24/21 20:41>
[2021-06-24 18:26] LABS: MANUAL DIFF FLAG NO
[2021-06-24 18:41] LABS: Lactic Acid 1.7 mmol/L (0.5-2.0)
[2021-06-24 18:45] LABS: Alanine Aminotransferase 18 U/L (0-31); Albumin Level 3.8 g/dL (3.5-5.0); Alkaline Phosphatase 109 U/L (39-117); Anion Gap 18 (12-20); Aspartate Amino Transferase 17 U/L (5-31); Bilirubin Direct 0.2 mg/dL (0.0-0.5); Bilirubin Total 0.3 mg/dL (0.0-1.0); Blood Urea Nitrogen 25 mg/dL (9-16); Calcium 9.7 mg/dL (8.4-10.2); Carbon Dioxide 17 mmol/L (22-29); Chloride 105 mmol/L (96-108); Creatinine Clr Calc Pharmacy 23.4; Estimated Glomerular Filt Rate 28; Glucose Random 175 mg/dL (60-115); Lipase 57 U/L (8-78); Potassium 4.1 mmol/L (3.3-5.1); Sodium 136 mmol/L (135-145); Total Protein 7.2 g/dL (6.5-8.0)
[2021-06-24 18:48] LABS: B Type Natriuretic Peptide 68 pg/mL (<100); Troponin-I High Sensitivity 6.6 ng/L (<3.5-17.0)
[2021-06-24 18:54] LABS: Basophils Absolute Auto 0.1 X10*3/uL (0.0-0.2); Basophils Percent Auto 0.5 % (0-2); Eosinophils Absolute Auto 0.3 X10*3/uL (0.0-0.4); Eosinophils Percent Auto 2.4 % (0-4); Hemoglobin 12.3 g/dl (12.0-16.0); Imm Gran Abs Auto 0.07 X10*3/uL (0.00-0.03); Imm Gran Pct Auto 0.6 % (0.0-0.4); Lymphocytes Absolute Auto 2.4 X10*3/uL (1.2-4.9); Lymphocytes Percent Auto 21.8 % (20-40); Mean Corpuscular HGB Conc 33.2 g/dl (31.0-35.0); Mean Corpuscular Hemoglobin 29.6 pg (27.0-33.0); Mean Corpuscular Volume 89.2 fL (80.0-98.0); Mean Platelet Volume 8.7 fL (9.4-12.3); Monocytes Percent Auto 8.8 % (2-11); Neutrophils Absolute Auto 7.2 x10*3/uL (2.0-8.3); Neutrophils Percent Auto 65.9 % (45-73); Platelet Count 314 X10*3/uL (160-400); Red Blood Count 4.15 X10*6/uL (4.20-5.50); Red Cell Distribution Width 13.4 % (11.0-16.0)
[2021-06-24 19:28] LABS: Appearance Urine TURBID; Color Urine YELLOW; Glucose Urine UA NEG (NEG); Leukocyte Esterase Urine 3+ (NEG); Nitrite Urine NEG (NEG); PH 5.5 (5.0-8.0); UACC Culture Trigger YES; Urine Blood 3+ (NEG); Urine Ketones NEG (NEG); Urine Protein 1+ MG/DL (NEG-TRACE)
[2021-06-24 19:36] VITALS: BP 163/78; PULSE 88; RESP 13; TEMP 36.5; O2SAT 100
[2021-06-24] MEDS: 0.9 % Sodium Chloride 1,000 ML 999 ML IV (19:37)
[2021-06-24 19:53] VITALS: RESP 14
[2021-06-24] MEDS: ondansetron HCL 4 MG/2 ML VIAL IVPUSH (19:53)
[2021-06-24] MEDS: Morphine Sulfate 2 MG/ML CARTRIDGE IVPUSH (19:53)
[2021-06-24] MEDS: levoFLOXacin/D5W 750 MG/150 ML PIGGYBACK 100 MG IV (19:54)
[2021-06-24 19:56] LABS: Bacteria Urine TRACE /LPF; Squamous Epithelial Cell Urine TRACE /LPF; WBC Clumps Urine NOTED; WBC Urine TNTC /HPF (0-4)
[2021-06-24 21:00] VITALS: BP 164/78; PULSE 82; RESP 24; TEMP 36.6; O2SAT 99
--- NOTE | 2021-06-24 21:07 | PHA.MEDREC ---
Pharmacy Consult ? Medication Reconciliation Pharmacy has completed the medication reconciliation. Pt's daughter Lakisha at bedside, confirmed medication list. Confirmed that pt is not allergic to nitrofurantoin and patient took a dose this AM for chronic UTI.
--- NOTE | 2021-06-24 23:38 | PM.IMHP ---
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 Most of the history obtained from the patient's daughter at bedside. Reportedly patient has been having UTI with microscopic hematuria and finished a course of antibiotics; recently started on nitrofurantoin by her PCP. But over the past 2 days she has been not herself and today and patient was noted to be very confused and agitated; hence brought to the hospital for further evaluation. Denies any chest pain or palpitations Denies patient complaining of any numbness tingling or focal weakness. Denies any fevers. Reported that patient intermittently complains of lower abdominal discomfort. Denies any hematuria. Review of all other systems is negative ER course: Per ER team patient noted to have abnormal urinalysis; mildly confused; leg given Levaquin. Admitted to the hospital for further management. [facility] Medical History (Updated 06/24/21 @ 20:41 by Saira Echevarria MD) Diabetes mellitus type 2 in nonobese H/O recurrent urinary tract infection History of right breast cancer Hypercholesterolemia Hypertension Skin lesion of chest wall Urinary incontinence Family History (Updated 06/18/21 @ 14:58 by Dread Torres RN) Father Colon cancer Mother Diabetes Surgical History History of lumpectomy of right breast History of lymph node biopsy Social History (Updated 06/18/21 @ 15:03 by Dread Torres RN) Alcohol intake: never Patient Tobacco Use Status: Never used Tobacco Use of substances other than those prescribed or required for medical reasons: No Advance Directives: No Meds Allergies Allergy/AdvReac Type Severity Reaction Status Date / Time Penicillins Allergy Severe RASH AND Verified 05/15/20 15:21 ITCHY lisinopril [LISINOPRIL] Allergy Intermediate COUGH, Verified 05/15/20 15:21 tickle cough nitrofurantoin Allergy Unknown UNKNOWN Verified 05/15/20 15:21 [NITROFURANTOIN] ciprofloxacin [From Cipro] AdvReac Severe NAUSEA Verified 05/15/20 15:21 atorvastatin [From Lipitor] AdvReac Mild MUSCLE Verified 05/15/20 15:21 CRAMPS Active Medications: Current Medications Acetaminophen (Acetaminophen 325 Mg Tablet) 650 mg PO Q6H PRN PRN Reason: Pain, Mild (Pain Scale 1-3) Heparin Sodium (Porcine) (Heparin Sodium,Porcine 5,000 Unit/Ml Vial) 5,000 unit SUBCUT Q8H DIVYA Ceftriaxone Sodium 1 gm/ (Sodium Chloride) 50 mls @ 100 mls/hr IV Q24H [facility] Melatonin (Melatonin 3 Mg Tablet) 6 mg PO BEDTIME PRN PRN Reason: Insomnia Senna (Sennosides 8.6 Mg Tablet) 17.2 mg PO BEDTIME PRN PRN Reason: Constipation Sodium Chloride (0.9 % Sodium Chloride Flush 3 Ml Syringe) 3 ml IVFLUSH QSHIFT [facility] Home Medications Medication Instructions Recorded Confirmed Last Taken Type bupropion HCl 150 mg tablet,12 hr 150 mg PO BID 05/15/20 06/24/21 06/24/21 History sustained-release lorazepam 0.5 mg tablet 0.5 mg PO BID PRN 05/15/20 06/24/21 06/24/21 History lorazepam 1 mg tablet 1 mg PO BEDTIME PRN 05/15/20 06/24/21 Unknown History pen needle, diabetic 32 gauge x #50 ea 05/15/20 05/15/20 Unknown History trazodone 50 mg tablet 50 mg PO BEDTIME 05/15/20 06/24/21 06/23/21 History insulin glargine 100 unit/mL (3 20 unit SUBCUT BEDTIME ml 06/18/21 06/24/21 06/23/21 History mL) subcutaneous pen insulin lispro 100 unit/mL 3 - 6 sliding scale dose SUBCUT TID 06/18/21 06/24/21 06/24/21 History subcutaneous solution (Humalog U-100 Insulin) loperamide 2 mg capsule (Imodium 2 mg PO BID PRN cap 06/18/21 06/24/21 Unknown History A-D) melatonin 3 mg capsule 3 mg PO BEDTIME PRN 06/18/21 06/24/21 Unknown History levothyroxine 125 mcg tablet 1 tab PO DAILY 06/24/21 06/24/21 06/24/21 History nitrofurantoin macrocrystal 50 mg 1 cap PO DAILY 06/24/21 06/24/21 06/24/21 History capsule Physical Exam Vital Signs and Narrative: Vital Signs: Last Vital Signs Temp 97.9 F 06/24/21 21:00 Pulse 82 06/24/21 21:00 Resp 24 H 06/24/21 21:00 BP 164/78 H 06/24/21 21:00 Pulse Ox 99 06/24/21 21:00 BMI result Body Mass Index 32.9 Gen: Appears be in no acute distress HEENT: NCAT, Moist mucosa. Pulmonary: Vesicular breath sounds, fair air entry CVS: Normal S1-S2 Abdomen: BS+, Soft, Nontender Extremities: Warm well perfused Neuro: Alert and awake. Oriented to self. Moves all extremities equally. Results Labs CBC and Chem 7: 06/25/21 07:04 06/25/21 07:04 Labs: Laboratory Results - last 24 hr 06/24/21 06/24/21 06/24/21 18:13 18:13 18:13 MCV 89.2 MCH 29.6 MCHC 33.2 RDW 13.4 Plt Count 314 MPV 8.7 L Immature Gran % (Auto) 0.6 H Neut % (Auto) 65.9 Lymph % (Auto) 21.8 [place] % (Auto) 8.8 Eos % (Auto) 2.4 Baso % (Auto) 0.5 Lymph # (Auto) 2.4 [place] # (Auto) 1.0 Eos # (Auto) 0.3 Baso # (Auto) 0.1 Abs Immat Gran (auto) 0.07 H Absolute Neuts (auto) 7.2 Absolute Nucleated RBC 0.000 Nucleated RBC % (auto) 0.0 Anion Gap 18 Estim Creat Clear Calc 23.4 Estimated GFR 28 Random Glucose 175 H Lactic Acid Calcium 9.7 Total Bilirubin 0.3 Direct Bilirubin 0.2 AST 17 ALT 18 Alkaline Phosphatase 109 D Troponin I High Sens 6.6 B-Natriuretic Peptide 68 Total Protein 7.2 Albumin 3.8 Lipase 57 Urine Color Urine Appearance Urine pH Ur Specific [place] Urine Protein Urine Glucose (UA) Urine Ketones Urine Blood Urine Nitrite Ur Leukocyte Esterase Urine RBC Urine WBC Urine WBC Clumps Ur Squamous Epith Cells Urine Bacteria 06/24/21 06/24/21 18:13 19:13 MCV MCH MCHC RDW Plt Count MPV Immature Gran % (Auto) Neut % (Auto) Lymph % (Auto) [place] % (Auto) Eos % (Auto) Baso % (Auto) Lymph # (Auto) [place] # (Auto) Eos # (Auto) Baso # (Auto) Abs Immat Gran (auto) Absolute Neuts (auto) Absolute Nucleated RBC Nucleated RBC % (auto) Anion Gap Estim Creat Clear Calc Estimated GFR Random Glucose Lactic Acid 1.7 Calcium Total Bilirubin Direct Bilirubin AST ALT Alkaline Phosphatase Troponin I High Sens B-Natriuretic Peptide Total Protein Albumin Lipase Urine Color YELLOW Urine Appearance TURBID Urine pH 5.5 Ur Specific [place] 1.010 Urine Protein 1+ H Urine Glucose (UA) NEG Urine Ketones NEG Urine Blood 3+ H Urine Nitrite NEG Ur Leukocyte Esterase 3+ H Urine RBC 5-9 H Urine WBC TNTC H Urine WBC Clumps NOTED Ur Squamous Epith Cells TRACE Urine Bacteria TRACE Imaging Radiologist's Impressions: Impressions Chest X-Ray 06/24/21 18:23 IMPRESSION: No acute abnormality of the chest. 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 Altered mental status: Toxic metabolic encephalopathy in the setting of UTI. Supportive care. Delirium precautions UTI: Will keep the patient on IV ceftriaxone. Follow up cultures. Microscopic hematuria: Likely in the setting of UTI. Follow up with Urology if not improving History of diabetes: Hold home Lantus. Insulin sliding scale. History of hypothyroidism: Continue home levothyroxine. For all other chronic conditions, home medications will be continued DVT prophylaxis: Subcu heparin Code status: DNR/DNI. Confirmed with the patient's healthcare proxy at bedside. Quality Stroke Does the patient have a stroke diagnosis?: No VTE Prior VTE?: No VTE Risk Level:: Medical - moderate - high VTE Device Contraindication: Treatment Not Indicated VTE Drug Contraindication: N/A - Med Ordered
[2021-06-25 00:34] VITALS: BP 162/71; PULSE 86; RESP 16; O2SAT 98
[2021-06-25] MEDS: cefTRIAXone sodium 1 GM in 0.9 % Sodium Chloride 50 ML IV (00:45)
[2021-06-25] MEDS: 0.9 % Sodium Chloride Flush 3 ML SYRINGE IVFLUSH ×2 (00:45→23:53)
[2021-06-25 02:23] LABS: COVID-19 Test Negative (Negative); IDNOW Serial# 55D5AD1C
[2021-06-25 02:54] VITALS: BP 168/72; PULSE 90; TEMP 36.6; O2SAT 99
[2021-06-25] MEDS: Acetaminophen 325 MG TABLET 650 MG PO (03:17)
[2021-06-25] MEDS: LORazepam 0.5 MG TABLET PO (03:17)
[2021-06-25] MEDS: Melatonin 3 MG TABLET 6 MG PO (03:17)
--- NOTE | 2021-06-25 03:42 | PC.NURSE ---
Report received from ROMEL Bernardo. This RN resuming care. Pts daughter standing at curtain requesting pts PM medications. Pt medicated with medications per request of daughter who stated pt was getting antsy. Daughter expresses concern, states they have been requesting water for six hours. Daughter also states she was told her mother would get a hospital bed and that she would be provided with a recliner, all of which never came. This RN and collections technician at bedside, pt switched into a hospital bed, daughter provided with a recliner for comfort. Water at bedside per request. Pt and daughter resting comfortably in bed, advised to call if they needed anything.
[2021-06-25] MEDS: LORazepam 1 MG TABLET PO ×2 (05:08→19:57)
[2021-06-25] MEDS: Levothyroxine Sodium 125 MCG TABLET PO (05:08)
[2021-06-25 05:13] VITALS: BP 173/107; PULSE 94; RESP 20; O2SAT 95
--- NOTE | 2021-06-25 07:20 | PC.NURSE ---
Report received from Chacha URENA. Patient is resting on stretcher with daughter at bedside. Alert and oriented. Patient reports she is feeling much more comfortable at this time. Reports little sleep overnight, requesting breakfast tray. Patient vitals WNL. Respirations regular and even. Skin PWD. Urinary catheter is patent and draining yellow urine at this time. Awaiting bed assignment a this time, will continue to monitor.
[2021-06-25 07:23] LABS: MANUAL DIFF FLAG NO
[2021-06-25 07:27] LABS: Basophils Percent Auto 0.5 % (0-2); Eosinophils Absolute Auto 0.2 X10*3/uL (0.0-0.4); Eosinophils Percent Auto 2.9 % (0-4); Hematocrit 38.5 % (37.0-47.0); Hemoglobin 12.6 g/dl (12.0-16.0); Imm Gran Abs Auto 0.06 X10*3/uL (0.00-0.03); Imm Gran Pct Auto 0.7 % (0.0-0.4); Lymphocytes Absolute Auto 1.5 X10*3/uL (1.2-4.9); Mean Corpuscular HGB Conc 32.7 g/dl (31.0-35.0); Mean Corpuscular Volume 88.5 fL (80.0-98.0); Mean Platelet Volume 8.2 fL (9.4-12.3); Monocytes Absolute Auto 0.7 X10*3/uL (0.1-1.2); Monocytes Percent Auto 8.2 % (2-11); Neutrophils Absolute Auto 5.9 x10*3/uL (2.0-8.3); Neutrophils Percent Auto 69.7 % (45-73); Platelet Count 288 X10*3/uL (160-400); Red Blood Count 4.35 X10*6/uL (4.20-5.50); Red Cell Distribution Width 13.7 % (11.0-16.0); White Blood Count 8.4 X10*3/uL (4.8-10.8)
[2021-06-25 07:41] LABS: Anion Gap 18 (12-20); Blood Urea Nitrogen 20 mg/dL (9-16); Calcium 9.4 mg/dL (8.4-10.2); Carbon Dioxide 17 mmol/L (22-29); Chloride 106 mmol/L (96-108); Creatinine Clr Calc Pharmacy 27.7; Estimated Glomerular Filt Rate 35; Glucose Random 240 mg/dL (60-115); Potassium 4.5 mmol/L (3.3-5.1); Sodium 136 mmol/L (135-145)
[2021-06-25 08:00] VITALS: BP 139/71; PULSE 107; RESP 20; TEMP 36.1; O2SAT 96
[2021-06-25] MEDS: Heparin Sodium,Porcine 5,000 UNIT/ML VIAL 5000 UNIT SUBCUT ×2 (09:07→17:48)
[2021-06-25] MEDS: buPROPion HCl XL 300 MG TAB.ER.24H PO (09:20)
[2021-06-25 10:35] LABS: Folate 6.4 ng/mL (> or = 4.0); Vitamin B12 505 pg/mL (200-900)
--- NOTE | 2021-06-25 11:05 | PC.NURSE ---
Pt is a/o. c/o no pain at this moment. Daughter at bedside. Bullock intact.
[2021-06-25 11:21] LABS: Thyroid Stimulating Hormone 0.59 uIU/mL (0.32-4.0)
--- NOTE | 2021-06-25 14:05 | HO.PM.IMPN ---
Subjective Subjective Date of Service: 06/25/21 Interval History: Interviewed with daughter at bedside Pt's mental status + orientation improved C/o dysuria, suprapubic pain Review of Systems Review of Systems: Yes all other systems are reviewed and are negative Physical Exam Vital Signs: Vital Signs: Last Vital Signs Temp 97.0 F 06/25/21 08:00 Pulse 107 H 06/25/21 08:00 Resp 20 06/25/21 08:00 BP 139/71 06/25/21 08:00 Pulse Ox 96 06/25/21 08:00 BMI result Body Mass Index 32.9 Gen: in no acute distress HEENT: sclera anicteric, moist mucus membranes Neck: supple Lungs: clear to auscultation bilaterally Heart: regular rate and rhythm, no murmurs Abd: soft, non-distended, suprapubic tenderness Ext: no edema Skin: warm/well-perfused Neuro: alert and oriented x3, no focal findings Psych: appropriate affect Objective Data Active Medications Acetaminophen (Acetaminophen 325 Mg Tablet) 650 mg PO Q6H PRN PRN Reason: Pain, Mild (Pain Scale 1-3) Last Admin: 06/25/21 03:17 Dose: 650 mg Documented by: NURIA Bupropion HCl (Bupropion Hcl Xl 300 Mg Tab.Er.24h) 300 mg PO DAILY [facility] Last Admin: 06/25/21 09:20 Dose: 300 mg Documented by: SALOME Heparin Sodium (Porcine) (Heparin Sodium,Porcine 5,000 Unit/Ml Vial) 5,000 unit SUBCUT Q8H [facility] Last Admin: 06/25/21 09:07 Dose: 5,000 unit Documented by: SALOME Ceftriaxone Sodium 1 gm/ (Sodium Chloride) 50 mls @ 100 mls/hr IV Q24H [facility] Last Infusion: 06/25/21 01:19 Dose: 0 mls/hr Documented by: GIO Levothyroxine Sodium (Levothyroxine Sodium 125 Mcg Tablet) 125 mcg PO DAILY@0630 [facility] Last Admin: 06/25/21 05:08 Dose: 125 mcg Documented by: KARLA Loperamide HCl (Loperamide Hcl 2 Mg Capsule) 2 mg PO BID PRN PRN Reason: Loose Stool Lorazepam (Lorazepam 0.5 Mg Tablet) 0.5 mg PO BID PRN PRN Reason: anxiety Last Admin: 06/25/21 03:17 Dose: 0.5 mg Documented by: NURIA Lorazepam (Lorazepam 1 Mg Tablet) 1 mg PO BEDTIME PRN PRN Reason: Sleep Last Admin: 06/25/21 05:08 Dose: 1 mg Documented by: KARLA Melatonin (Melatonin 3 Mg Tablet) 6 mg PO BEDTIME PRN PRN Reason: Insomnia Last Admin: 06/25/21 03:17 Dose: 6 mg Documented by: NURIA Senna (Sennosides 8.6 Mg Tablet) 17.2 mg PO BEDTIME PRN PRN Reason: Constipation Sodium Chloride (0.9 % Sodium Chloride Flush 3 Ml Syringe) 3 ml IVFLUSH QSHIFT DIVYA Last Admin: 06/25/21 09:20 Dose: Not Given Documented by: SALOME Non-Admin Reason: Med Not Available Trazodone HCl (Trazodone Hcl 50 Mg Tablet) 50 mg PO BEDTIME [facility] Labs CBC & Chem 7: 06/25/21 07:04 06/25/21 07:04 Labs: Laboratory Results - last 24 hr 06/24/21 06/24/21 06/24/21 18:13 18:13 18:13 MCV 89.2 MCH 29.6 MCHC 33.2 RDW 13.4 Plt Count 314 MPV 8.7 L Immature Gran % (Auto) 0.6 H Neut % (Auto) 65.9 Lymph % (Auto) 21.8 [place] % (Auto) 8.8 Eos % (Auto) 2.4 Baso % (Auto) 0.5 Lymph # (Auto) 2.4 [place] # (Auto) 1.0 Eos # (Auto) 0.3 Baso # (Auto) 0.1 Abs Immat Gran (auto) 0.07 H Absolute Neuts (auto) 7.2 Absolute Nucleated RBC 0.000 Nucleated RBC % (auto) 0.0 Anion Gap 18 Estim Creat Clear Calc 23.4 Estimated GFR 28 Random Glucose 175 H Lactic Acid Calcium 9.7 Total Bilirubin 0.3 Direct Bilirubin 0.2 AST 17 ALT 18 Alkaline Phosphatase 109 D Troponin I High Sens 6.6 B-Natriuretic Peptide 68 Total Protein 7.2 Albumin 3.8 Lipase 57 Vitamin B12 Folate TSH Urine Color Urine Appearance Urine pH Ur Specific [place] Urine Protein Urine Glucose (UA) Urine Ketones Urine Blood Urine Nitrite Ur Leukocyte Esterase Urine RBC Urine WBC Urine WBC Clumps Ur Squamous Epith Cells Urine Bacteria COVID-19 (ARASELI) COVID-19 Clin Com 06/24/21 06/24/21 06/25/21 18:13 19:13 01:59 MCV MCH MCHC RDW Plt Count MPV Immature Gran % (Auto) Neut % (Auto) Lymph % (Auto) [place] % (Auto) Eos % (Auto) Baso % (Auto) Lymph # (Auto) [place] # (Auto) Eos # (Auto) Baso # (Auto) Abs Immat Gran (auto) Absolute Neuts (auto) Absolute Nucleated RBC Nucleated RBC % (auto) Anion Gap Estim Creat Clear Calc Estimated GFR Random Glucose Lactic Acid 1.7 Calcium Total Bilirubin Direct Bilirubin AST ALT Alkaline Phosphatase Troponin I High Sens B-Natriuretic Peptide Total Protein Albumin Lipase Vitamin B12 Folate TSH Urine Color YELLOW Urine Appearance TURBID Urine pH 5.5 Ur Specific [place] 1.010 Urine Protein 1+ H Urine Glucose (UA) NEG Urine Ketones NEG Urine Blood 3+ H Urine Nitrite NEG Ur Leukocyte Esterase 3+ H Urine RBC 5-9 H Urine WBC TNTC H Urine WBC Clumps NOTED Ur Squamous Epith Cells TRACE Urine Bacteria TRACE COVID-19 (ARASELI) Negative COVID-19 Clin Com See Note 06/25/21 06/25/21 06/25/21 07:04 07:04 07:04 MCV 88.5 MCH 29.0 MCHC 32.7 RDW 13.7 Plt Count 288 MPV 8.2 L Immature Gran % (Auto) 0.7 H Neut % (Auto) 69.7 Lymph % (Auto) 18.0 L [place] % (Auto) 8.2 Eos % (Auto) 2.9 Baso % (Auto) 0.5 Lymph # (Auto) 1.5 [place] # (Auto) 0.7 Eos # (Auto) 0.2 Baso # (Auto) 0.0 Abs Immat Gran (auto) 0.06 H Absolute Neuts (auto) 5.9 Absolute Nucleated RBC 0.000 Nucleated RBC % (auto) 0.0 Anion Gap 18 Estim Creat Clear Calc 27.7 Estimated GFR 35 Random Glucose 240 H Lactic Acid Calcium 9.4 Total Bilirubin Direct Bilirubin AST ALT Alkaline Phosphatase Troponin I High Sens B-Natriuretic Peptide Total Protein Albumin Lipase Vitamin B12 505 Folate 6.4 TSH 0.59 Urine Color Urine Appearance Urine pH Ur Specific [place] Urine Protein Urine Glucose (UA) Urine Ketones Urine Blood Urine Nitrite Ur Leukocyte Esterase Urine RBC Urine WBC Urine WBC Clumps Ur Squamous Epith Cells Urine Bacteria COVID-19 (ARASELI) COVID-19 Clin Com Impressions Chest X-Ray 06/24/21 18:23 IMPRESSION: No acute abnormality of the chest. Microbiology Microbiology Results: Microbiology 06/24/21 19:13 Urine Culture - Preliminary Urine Catheterized - Zaragoza Catheter Culture too young to evaluate. Assessment and Plan (1) Acute UTI: Status: Acute (2) Altered mental status: Status: Acute Plan hospital d#2 86yo F with CKD3, DM2, recurrent UTI, HTN brought in with AMS in setting of UTI # encephalopathy due to infection - improving with ABX treatment - CT head pending # UTI - ceftriaxone d#2, folllow UCx # DM2 - correction-dose lispro # hypothyroid - continue LT4, TSH therapeutic # mood disorder - trazodone, lorazepam, bupropion # VTE ppx - UFH In my clinical judgment, the patient requires continued hospitalization for the following reasons: IV ABX Quality Stroke Does the patient have a stroke diagnosis?: No VTE Prior VTE?: No VTE Risk Level:: Medical - moderate - high VTE Device Contraindication: Treatment Not Indicated VTE Drug Contraindication: N/A - Med Ordered
--- NOTE | 2021-06-25 15:55 | PC.NURSE ---
pt sleeping, per family pt didn't sleep last night, holding medication per family request.
--- NOTE | 2021-06-25 17:52 | PC.NURSE ---
pt a&ox3, vss, denies any pain at this time. pt states a hx of occ abd discomfort related to bowel movements. pt slept for ~90 minutes. discussed sleeping w pt and daughter - normally takes trazodone at night, didn't get it yesterday, ordered for tonight. wal[place] draining. medicated per provider order. daughter at bedside
[2021-06-25 18:10] VITALS: BP 183/74; PULSE 102; RESP 16; TEMP 37.1; O2SAT 98
--- NOTE | 2021-06-25 19:49 | PC.NURSE ---
pt reported increased agitation and ready for bedtime PRN ativan.
--- NOTE | 2021-06-25 19:57 | PC.NURSE ---
medicated per provider order. pt tearful w some increased agitation, reassured pt that family will be at her bedside and that we can close her door if it helps her feel more safe - pt agreed.
[2021-06-25] MEDS: traZODone HCL 50 MG TABLET PO (20:50)
[2021-06-25 23:57] VITALS: BP 148/75; PULSE 103; RESP 17; TEMP 36.4; O2SAT 95
[2021-06-26] VITALS: PULSE 99; RESP 18; TEMP 36.6; O2SAT 97
[2021-06-26] MEDS: Heparin Sodium,Porcine 5,000 UNIT/ML VIAL 5000 UNIT SUBCUT ×4 (03:32→23:55)
[2021-06-26] MEDS: cefTRIAXone sodium 1 GM in 0.9 % Sodium Chloride 50 ML IV ×2 (03:33→23:55)
--- NOTE | 2021-06-26 04:48 | PC.NURSE ---
Patient resting quietly with daughter at bedside. , report given to RN on med/surg unit . Patient transported via bed to room 383.
[2021-06-26] MEDS: Levothyroxine Sodium 125 MCG TABLET PO (05:17)
[2021-06-26 05:18] VITALS: BMI 33.0
[2021-06-26 05:26] VITALS: BP 150/80
[2021-06-26 07:48] LABS: Glucose, Whole Blood 316 mg/dL (60-115)
[2021-06-26] MEDS: 0.9 % Sodium Chloride Flush 3 ML SYRINGE IVFLUSH ×3 (07:48→21:44)
[2021-06-26] MEDS: buPROPion HCl XL 300 MG TAB.ER.24H PO (07:51)
[2021-06-26 08:00] VITALS: BP 141/63; PULSE 88; RESP 18; TEMP 36.4; O2SAT 97
[2021-06-26] MEDS: Insulin Lispro 100 UNIT/ML 3 ML VIAL SUBCUT ×4 (08:08→21:43)
[2021-06-26 09:02] LABS: Hemoglobin 12.6 g/dl (12.0-16.0); Mean Corpuscular HGB Conc 32.3 g/dl (31.0-35.0); Mean Corpuscular Hemoglobin 29.6 pg (27.0-33.0); Mean Corpuscular Volume 91.8 fL (80.0-98.0); Mean Platelet Volume 8.4 fL (9.4-12.3); Platelet Count 272 X10*3/uL (160-400); Red Blood Count 4.25 X10*6/uL (4.20-5.50); Red Cell Distribution Width 14.1 % (11.0-16.0)
--- NOTE | 2021-06-26 09:13 | P.CDIC_ITS ---
CDI Concurrent Query Documentation Clarification: PHYSICIAN'S DOCUMENTATION REQUEST Date of Query: 06/26/21912 Patient Name: Triny Bush Admit Date: 06/24/21 Dear Doctor, A review of the medical record indicates additional documentation may be needed. Please review below and update the documentation accordingly. Risk Factors/Clinical Indicators/Treatments Nursing - BMI 33.1 5' 2 in height If possible, please provide an associated diagnosis related to the abnormal BMI, such as: For a BMI >= 30: * Overweight * Obesity Other or unable to determine Use of terms such as suspected, likely, concern for, or probable (associated with a specific diagnosis that is being evaluated, monitored, or treated as if it exists) are acceptable and can be coded in the inpatient setting, when documented at the time of discharge. Thank you, Sweta Quiroz [facility], CDIS Extension: [phone] Please use your independent medical judgment in providing your response. THIS QUERY IS PART OF THE PERMANENT MEDICAL RECORD Provider Response: Other Other Diagnosis: obesity NOT MORBID
[2021-06-26 09:14] LABS: Estimated Average Glucose 235 mg/dL; Hemoglobin A1c % 9.8 %
[2021-06-26 09:15] LABS: Anion Gap 14 (12-20); Blood Urea Nitrogen 22 mg/dL (9-16); Calcium 9.3 mg/dL (8.4-10.2); Carbon Dioxide 21 mmol/L (22-29); Chloride 106 mmol/L (96-108); Creatinine Clr Calc Pharmacy 28.6; Estimated Glomerular Filt Rate 36; Glucose Random 344 mg/dL (60-115); Potassium 4.4 mmol/L (3.3-5.1); Sodium 137 mmol/L (135-145)
[2021-06-26 11:58] VITALS: BP 142/65; PULSE 95; RESP 18; TEMP 36.6; O2SAT 94
[2021-06-26 12:03] LABS: Glucose, Whole Blood 293 mg/dL (60-115)
--- NOTE | 2021-06-26 12:49 | MHC.CM.PN ---
Addendum entered by Brook Gilbert 06/26/21 14:15: [facility] UNABLE TO OFFER SECOND CHOICE ([facility]) IS OFFERING A BED Original Note: PATIENT LIVES WITH FAMILY (TWO FAMILY HOME) SHE HAS A WALKER THAT SHE USES OCCASIONALLY. NO SERVICES IN THE HOME AND HAS AMPLE FAMILY SUPPORT WHERE NEEDED. PFIZER VACCINATED X 3 AND INFORMATION IS IN EXPANSE PER DAUGHTER [facility] (IN ROOM AND WITH PERMISSION FROM PATIENT) BELIEVES THAT PATIENT'S DAUGHTER CARLOS MANUEL IS THE HCP AGENT. COPY REQUESTED. PATIENT AWARE THAT IF NONE IS FOUND, ONE CAN BE COMPLETED HERE. PER REQUEST, REFERRAL PLACED TO (1ST CHOICE) [facility] AND THEN (2ND CHOICE) [facility] 06/26 IN CHART
--- NOTE | 2021-06-26 13:30 | HO.PM.IMPN ---
Subjective Subjective Date of Service: 06/26/21 Interval History: Mental status improving Dysuria/suprapubic pressure resolved Review of Systems Review of Systems: Yes all other systems are reviewed and are negative Physical Exam Vital Signs: Vital Signs: Last Vital Signs Temp 97.8 F 06/26/21 11:58 Pulse 95 06/26/21 11:58 Resp 18 06/26/21 11:58 BP 142/65 H 06/26/21 11:58 Pulse Ox 94 06/26/21 11:58 BMI result Body Mass Index 33.0 en: in no acute distress HEENT: sclera anicteric, moist mucus membranes Neck: supple Lungs: clear to auscultation bilaterally Heart: regular rate and rhythm, no murmurs Abd: soft, non-distended, suprapubic tenderness resolved Ext: no edema Skin: warm/well-perfused Neuro: alert and oriented x3, no focal findings Psych: appropriate affect Objective Data Active Medications Acetaminophen (Acetaminophen 325 Mg Tablet) 650 mg PO Q6H PRN PRN Reason: Pain, Mild (Pain Scale 1-3) Last Admin: 06/25/21 03:17 Dose: 650 mg Documented by: UNRIA Bupropion HCl (Bupropion Hcl Xl 300 Mg Tab.Er.24h) 300 mg PO DAILY [facility] Last Admin: 06/26/21 07:51 Dose: 300 mg Documented by: CHEPE Dextrose (Dextrose 50 % 25 Gm/50 Ml Syringe) 25 gm IVPUSH Q15M PRN; Protocol PRN Reason: per Hypoglycemia Standing Ord. Glucose (Glucose Gel 15 Gm Gel..Gram.) 15 gm PO Q15M PRN; Protocol PRN Reason: per Hypoglycemia Standing Ord. Heparin Sodium (Porcine) (Heparin Sodium,Porcine 5,000 Unit/Ml Vial) 5,000 unit SUBCUT Q8H [facility] Last Admin: 06/26/21 07:48 Dose: 5,000 unit Documented by: CHEPE Ceftriaxone Sodium 1 gm/ (Sodium Chloride) 50 mls @ 100 mls/hr IV Q24H [facility] Last Infusion: 06/26/21 05:24 Dose: 0 mls/hr Documented by: SHIMA Insulin Human Lispro (Insulin Lispro 100 Unit/Ml 3 Ml Vial) 0 unit SUBCUT QIDACHS [facility]; Protocol Last Admin: 06/26/21 12:33 Dose: 6 unit Documented by: CHEPE Levothyroxine Sodium (Levothyroxine Sodium 125 Mcg Tablet) 125 mcg PO DAILY@0630 [facility] Last Admin: 06/26/21 05:17 Dose: 125 mcg Documented by: SHIMA Loperamide HCl (Loperamide Hcl 2 Mg Capsule) 2 mg PO BID PRN PRN Reason: Loose Stool Lorazepam (Lorazepam 0.5 Mg Tablet) 0.5 mg PO BID PRN PRN Reason: anxiety Last Admin: 06/25/21 03:17 Dose: 0.5 mg Documented by: NURIA Lorazepam (Lorazepam 1 Mg Tablet) 1 mg PO BEDTIME PRN PRN Reason: Sleep Last Admin: 06/25/21 19:57 Dose: 1 mg Documented by: FAROOQ Melatonin (Melatonin 3 Mg Tablet) 6 mg PO BEDTIME PRN PRN Reason: Insomnia Last Admin: 06/25/21 03:17 Dose: 6 mg Documented by: NURIA Senna (Sennosides 8.6 Mg Tablet) 17.2 mg PO BEDTIME PRN PRN Reason: Constipation Sodium Chloride (0.9 % Sodium Chloride Flush 3 Ml Syringe) 3 ml IVFLUSH QSHIFT [facility] Last Admin: 06/26/21 07:48 Dose: 3 ml Documented by: CHEPE Trazodone HCl (Trazodone Hcl 50 Mg Tablet) 50 mg PO BEDTIME [facility] Last Admin: 06/25/21 20:50 Dose: 50 mg Documented by: FAROOQ Labs CBC & Chem 7: 06/26/21 08:42 06/26/21 08:42 Labs: Laboratory Results - last 24 hr 06/26/21 06/26/21 06/26/21 07:43 08:42 08:42 MCV 91.8 MCH 29.6 MCHC 32.3 RDW 14.1 Plt Count 272 MPV 8.4 L Absolute Nucleated RBC 0.000 Nucleated RBC % (auto) 0.0 Anion Gap 14 Estim Creat Clear Calc 28.6 Estimated GFR 36 POC Glucose 316 H Random Glucose 344 H Estimat Average Glucose Hemoglobin A1c % Calcium 9.3 06/26/21 06/26/21 08:42 11:57 MCV MCH MCHC RDW Plt Count MPV Absolute Nucleated RBC Nucleated RBC % (auto) Anion Gap Estim Creat Clear Calc Estimated GFR POC Glucose 293 H Random Glucose Estimat Average Glucose 235 Hemoglobin A1c % 9.8 Calcium Microbiology Microbiology Results: Microbiology 06/24/21 19:13 Urine Culture - Preliminary Urine Catheterized - Zaragoza Catheter Gram negative vik 06/24/21 19:23 Blood Culture - Preliminary Blood - Venous No growth after 24 hours. 06/24/21 18:41 Blood Culture - Preliminary Blood - Venous No growth after 24 hours. Assessment and Plan (1) Acute UTI: Status: Acute (2) Altered mental status: Status: Acute Plan hospital d#3 86yo F with CKD3, DM2, recurrent UTI, HTN brought in with AMS in setting of UTI # encephalopathy due to infection - improving with ABX treatment - CT head unrevealing # UTI - ceftriaxone d#3, folllow UCx # DM2. A1c 9.8 - correction-dose lispro, add back home glargine # hypothyroid - continue LT4, TSH therapeutic # mood disorder - trazodone, lorazepam, bupropion # obesity - not morbid # VTE ppx - UFH # dispo - STR recommended In my clinical judgment, the patient requires continued hospitalization for the following reasons: IV ABX Quality Stroke Does the patient have a stroke diagnosis?: No VTE Prior VTE?: No VTE Risk Level:: Medical - moderate - high VTE Device Contraindication: Treatment Not Indicated VTE Drug Contraindication: N/A - Med Ordered
[2021-06-26 15:38] VITALS: BP 166/78; PULSE 97; RESP 18; TEMP 37.1; O2SAT 97
--- NOTE | 2021-06-26 15:49 | PC.NURSE ---
P called to pt room by daughter saying her mom dos not look good I BP on right arm 181/87 pulse 95,left arm BP 166/78,SAT 96% on RA ,not in distress,BS 326,Dr. Stoll made aware,assisted patient back to bed,will cover BS according to scale E will monitor
[2021-06-26 16:15] LABS: Glucose, Whole Blood 326 mg/dL (60-115)
--- NOTE | 2021-06-26 16:27 | PC.NURSE ---
ATTEMPTED TO REMOVE BEASLEY WITH AGREEMENT OF DR JASON. DAUGHTER ADAMANTLY REFUSED TO HAVE CATH REMOVED TODAY. DR JASON IS AWARE. DAUGHTER WAS EDUCATED ON RISK OF KEEPING CATH IN PLACE.
--- NOTE | 2021-06-26 16:56 | P.CNPS_ITS ---
History of Present Illness Date of Service: 06/26/2021 Chief Complaint: UTI Reason for Consult: Medication Requesting physician: Betzaida Tripathi Discussed with referring provider: Yes Sources of Information: patient interviewed, chart reviewed and crisis/core team assessment reviewed HPI Narrative: Triny is an 86 y.o. 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 She presented to [facility] on 06/24/21 with a chief complaint of confusion/agitation x 2 days. She currently has a UTI that has been difficult to clear, recently started on nitrofurantoin by her PCP. Head CT unremarkable. Pt was started on ceftriaxone x 7 days.?? Psych consult requested due to pt?s daughter reporting pt has been non-adherent with lexapro x 2 weeks. Her dose was increased from 10 to 20 mg on 05/30/21. She had been on prozac for 30 years but daughter felt it was not holding pt?s anxiety any longer and PCP started lexapro on 03/06/21. Pt on wellbutrin XL 300 mg QAM, ativan 1 mg QHS and 0.5 mg BID PRN, and trazodone 50 mg QHS PRN.? I spoke with pt?s daughters Ida and Lakisha, as pt states she feels ?confused.? Daughter reports she stopped taking lexapro 20 mg 2 weeks ago because she would have episodes in which she couldnt walk or talk, felt lethargic, crying, swearing, and was ?out of sorts.?? Says she ?thinks she wants to ? and reported perceptual disturbance of seeing her father and son. Pt?s daughter is concerned that pt is in SSRI withdrawal that is co- occurring with delirium from recurrent UTI. Discussed re-starting prozac low dose and following up with OP provider. Past Psychiatric History: -Denies hx of psych treatment other than PCP prescribing prozac for many years, recently switched to lexapro and pt stopped taking it due to altered mental status, which appears more likely due to UTI/ delirium. Medical Evaluation Reviewed: Yes [facility] Medical History (Updated 06/24/21 @ 20:41 by Saira Echevarria MD) Diabetes mellitus type 2 in nonobese H/O recurrent urinary tract infection History of right breast cancer Hypercholesterolemia Hypertension Skin lesion of chest wall Urinary incontinence Surgical History History of lumpectomy of right breast History of lymph node biopsy Diagnostics Vital Signs (24Hr): Vital Signs - 24 hr 06/25/21 18:10 06/25/21 23:57 06/26/21 00:00 Temperature 98.8 F 97.6 F 97.8 F Pulse Rate 102 H 103 H 99 Respiratory Rate 16 17 18 Blood Pressure 183/74 H 148/75 H Pulse Oximetry 98 95 97 06/26/21 05:26 06/26/21 08:00 06/26/21 11:58 Temperature 97.6 F 97.8 F Pulse Rate 88 95 Respiratory Rate 18 18 Blood Pressure 150/80 H 141/63 H 142/65 H Pulse Oximetry 97 94 06/26/21 15:38 Temperature 98.7 F Pulse Rate 97 Respiratory Rate 18 Blood Pressure 166/78 H Pulse Oximetry 97 BMI result Body Mass Index 33.0 Labs Results: 06/26/21 08:42 06/26/21 08:42 Labs: Laboratory Results - last 48 hr 06/24/21 06/24/21 06/24/21 18:13 18:13 18:13 WBC 11.0 H RBC 4.15 L Hgb 12.3 Hct 37.0 MCV 89.2 MCH 29.6 MCHC 33.2 RDW 13.4 Plt Count 314 MPV 8.7 L Immature Gran % (Auto) 0.6 H Neut % (Auto) 65.9 Lymph % (Auto) 21.8 Angelina % (Auto) 8.8 Eos % (Auto) 2.4 Baso % (Auto) 0.5 Lymph # (Auto) 2.4 Angelina # (Auto) 1.0 Eos # (Auto) 0.3 Baso # (Auto) 0.1 Abs Immat Gran (auto) 0.07 H Absolute Neuts (auto) 7.2 Absolute Nucleated RBC 0.000 Nucleated RBC % (auto) 0.0 Sodium 136 Potassium 4.1 Chloride 105 Carbon Dioxide 17 L Anion Gap 18 BUN 25 H Creatinine 1.71 H Estim Creat Clear Calc 23.4 Estimated GFR 28 POC Glucose Random Glucose 175 H Estimat Average Glucose Hemoglobin A1c % Lactic Acid Calcium 9.7 Total Bilirubin 0.3 Direct Bilirubin 0.2 AST 17 ALT 18 Alkaline Phosphatase 109 D Troponin I High Sens 6.6 B-Natriuretic Peptide 68 Total Protein 7.2 Albumin 3.8 Lipase 57 Vitamin B12 Folate TSH Urine Color Urine Appearance Urine pH Ur Specific [place] Urine Protein Urine Glucose (UA) Urine Ketones Urine Blood Urine Nitrite Ur Leukocyte Esterase Urine RBC Urine WBC Urine WBC Clumps Ur Squamous Epith Cells Urine Bacteria COVID-19 (ARASELI) COVID-19 Clin Com 06/24/21 06/24/21 06/25/21 18:13 19:13 01:59 WBC RBC Hgb Hct MCV MCH MCHC RDW Plt Count MPV Immature Gran % (Auto) Neut % (Auto) Lymph % (Auto) Angelina % (Auto) Eos % (Auto) Baso % (Auto) Lymph # (Auto) Angelina # (Auto) Eos # (Auto) Baso # (Auto) Abs Immat Gran (auto) Absolute Neuts (auto) Absolute Nucleated RBC Nucleated RBC % (auto) Sodium Potassium Chloride Carbon Dioxide Anion Gap BUN Creatinine Estim Creat Clear Calc Estimated GFR POC Glucose Random Glucose Estimat Average Glucose Hemoglobin A1c % Lactic Acid 1.7 Calcium Total Bilirubin Direct Bilirubin AST ALT Alkaline Phosphatase Troponin I High Sens B-Natriuretic Peptide Total Protein Albumin Lipase Vitamin B12 Folate TSH Urine Color YELLOW Urine Appearance TURBID Urine pH 5.5 Ur Specific [place] 1.010 Urine Protein 1+ H Urine Glucose (UA) NEG Urine Ketones NEG Urine Blood 3+ H Urine Nitrite NEG Ur Leukocyte Esterase 3+ H Urine RBC 5-9 H Urine WBC TNTC H Urine WBC Clumps NOTED Ur Squamous Epith Cells TRACE Urine Bacteria TRACE COVID-19 (ARASELI) Negative COVID-19 Clin Com See Note 06/25/21 06/25/21 06/25/21 07:04 07:04 07:04 WBC 8.4 RBC 4.35 Hgb 12.6 Hct 38.5 MCV 88.5 MCH 29.0 MCHC 32.7 RDW 13.7 Plt Count 288 MPV 8.2 L Immature Gran % (Auto) 0.7 H Neut % (Auto) 69.7 Lymph % (Auto) 18.0 L Angelina % (Auto) 8.2 Eos % (Auto) 2.9 Baso % (Auto) 0.5 Lymph # (Auto) 1.5 Angelina # (Auto) 0.7 Eos # (Auto) 0.2 Baso # (Auto) 0.0 Abs Immat Gran (auto) 0.06 H Absolute Neuts (auto) 5.9 Absolute Nucleated RBC 0.000 Nucleated RBC % (auto) 0.0 Sodium 136 Potassium 4.5 Chloride 106 Carbon Dioxide 17 L Anion Gap 18 BUN 20 H Creatinine 1.44 H Estim Creat Clear Calc 27.7 Estimated GFR 35 POC Glucose Random Glucose 240 H Estimat Average Glucose Hemoglobin A1c % Lactic Acid Calcium 9.4 Total Bilirubin Direct Bilirubin AST ALT Alkaline Phosphatase Troponin I High Sens B-Natriuretic Peptide Total Protein Albumin Lipase Vitamin B12 505 Folate 6.4 TSH 0.59 Urine Color Urine Appearance Urine pH Ur Specific [place] Urine Protein Urine Glucose (UA) Urine Ketones Urine Blood Urine Nitrite Ur Leukocyte Esterase Urine RBC Urine WBC Urine WBC Clumps Ur Squamous Epith Cells Urine Bacteria COVID-19 (ARASELI) COVID-19 [place] 06/26/21 06/26/21 06/26/21 07:43 08:42 08:42 WBC 8.0 RBC 4.25 Hgb 12.6 Hct 39.0 MCV 91.8 MCH 29.6 MCHC 32.3 RDW 14.1 Plt Count 272 MPV 8.4 L Immature Gran % (Auto) Neut % (Auto) Lymph % (Auto) Angelina % (Auto) Eos % (Auto) Baso % (Auto) Lymph # (Auto) Angelina # (Auto) Eos # (Auto) Baso # (Auto) Abs Immat Gran (auto) Absolute Neuts (auto) Absolute Nucleated RBC 0.000 Nucleated RBC % (auto) 0.0 Sodium 137 Potassium 4.4 Chloride 106 Carbon Dioxide 21 L Anion Gap 14 BUN 22 H Creatinine 1.40 Estim Creat Clear Calc 28.6 Estimated GFR 36 POC Glucose 316 H Random Glucose 344 H Estimat Average Glucose Hemoglobin A1c % Lactic Acid Calcium 9.3 Total Bilirubin Direct Bilirubin AST ALT Alkaline Phosphatase Troponin I High Sens B-Natriuretic Peptide Total Protein Albumin Lipase Vitamin B12 Folate TSH Urine Color Urine Appearance Urine pH Ur Specific [place] Urine Protein Urine Glucose (UA) Urine Ketones Urine Blood Urine Nitrite Ur Leukocyte Esterase Urine RBC Urine WBC Urine WBC Clumps Ur Squamous Epith Cells Urine Bacteria COVID-19 (ARASELI) COVID-19 [place] 06/26/21 06/26/21 06/26/21 08:42 11:57 15:36 WBC RBC Hgb Hct MCV MCH MCHC RDW Plt Count MPV Immature Gran % (Auto) Neut % (Auto) Lymph % (Auto) Angelina % (Auto) Eos % (Auto) Baso % (Auto) Lymph # (Auto) Angelina # (Auto) Eos # (Auto) Baso # (Auto) Abs Immat Gran (auto) Absolute Neuts (auto) Absolute Nucleated RBC Nucleated RBC % (auto) Sodium Potassium Chloride Carbon Dioxide Anion Gap BUN Creatinine Estim Creat Clear Calc Estimated GFR POC Glucose 293 H 326 H Random Glucose Estimat Average Glucose 235 Hemoglobin A1c % 9.8 Lactic Acid Calcium Total Bilirubin Direct Bilirubin AST ALT Alkaline Phosphatase Troponin I High Sens B-Natriuretic Peptide Total Protein Albumin Lipase Vitamin B12 Folate TSH Urine Color Urine Appearance Urine pH Ur Specific [place] Urine Protein Urine Glucose (UA) Urine Ketones Urine Blood Urine Nitrite Ur Leukocyte Esterase Urine RBC Urine WBC Urine WBC Clumps Ur Squamous Epith Cells Urine Bacteria COVID-19 (ARASELI) COVID-19 Clin Com Imaging Radiology Impressions: ITS Impressions Chest X-Ray 06/24/21 18:23 IMPRESSION: No acute abnormality of the chest. Head CT 06/25/21 11:03 IMPRESSION: No acute intracranial pathology. Stable findings of microangiopathy and atrophy. Mental Status Exam Mental Status Exam Narrative: Pt is oreinted to person only. Overweight, in hospital attire. Poor eye contact, inattentive, reading a newspaper. No Tics or Tremors. No abnormal involuntary movements. Calm, but difficult to engage in conversation. Non-pressured speech, not spontaneous with regular rate and rhythm, normal volume and prosody. No prolonged speech latency or dysarthria. Mood is [did not state], affect is somewhat blunted, pleasant. Denies SI/SIB/HI upon inquiry. Denies A/VH or delusional thought content. Thoughts are still confused. No hx of dementia dx. Insight/ Judgment poor. Medications Medications Current Medications Acetaminophen (Acetaminophen 325 Mg Tablet) 650 mg PO Q6H PRN PRN Reason: Pain, Mild (Pain Scale 1-3) Last Admin: 06/25/21 03:17 Dose: 650 mg Documented by: Bupropion HCl (Bupropion Hcl Xl 300 Mg Tab.Er.24h) 300 mg PO DAILY [facility] Last Admin: 06/26/21 07:51 Dose: 300 mg Documented by: Dextrose (Dextrose 50 % 25 Gm/50 Ml Syringe) 25 gm IVPUSH Q15M PRN; Protocol PRN Reason: per Hypoglycemia Standing Ord. Fluoxetine HCl (Fluoxetine Hcl Oral Solution 20 Mg/5 Ml Solution) 10 mg PO ONCE ONE Stop: 06/26/21 16:55 Glucose (Glucose Gel 15 Gm Gel..Gram.) 15 gm PO Q15M PRN; Protocol PRN Reason: per Hypoglycemia Standing Ord. Heparin Sodium (Porcine) (Heparin Sodium,Porcine 5,000 Unit/Ml Vial) 5,000 unit SUBCUT Q8H [facility] Last Admin: 06/26/21 16:32 Dose: 5,000 unit Documented by: Ceftriaxone Sodium 1 gm/ (Sodium Chloride) 50 mls @ 100 mls/hr IV Q24H [facility] Last Infusion: 06/26/21 05:24 Dose: Infused Documented by: Insulin Glargine (Insulin Glargine,Hum.Rec.Anlog 100 Unit/Ml 10 Ml Vial) 20 unit SUBCUT BEDTIME [facility] Insulin Human Lispro (Insulin Lispro 100 Unit/Ml 3 Ml Vial) 0 unit SUBCUT QIDACHS [facility]; Protocol Last Admin: 06/26/21 16:31 Dose: 8 unit Documented by: Levothyroxine Sodium (Levothyroxine Sodium 125 Mcg Tablet) 125 mcg PO DAILY@0630 [facility] Last Admin: 06/26/21 05:17 Dose: 125 mcg Documented by: Loperamide HCl (Loperamide Hcl 2 Mg Capsule) 2 mg PO BID PRN PRN Reason: Loose Stool Lorazepam (Lorazepam 0.5 Mg Tablet) 0.5 mg PO BID PRN PRN Reason: anxiety Last Admin: 06/25/21 03:17 Dose: 0.5 mg Documented by: Lorazepam (Lorazepam 1 Mg Tablet) 1 mg PO BEDTIME PRN PRN Reason: Sleep Last Admin: 06/25/21 19:57 Dose: 1 mg Documented by: Melatonin (Melatonin 3 Mg Tablet) 6 mg PO BEDTIME PRN PRN Reason: Insomnia Last Admin: 06/25/21 03:17 Dose: 6 mg Documented by: Senna (Sennosides 8.6 Mg Tablet) 17.2 mg PO BEDTIME PRN PRN Reason: Constipation Sodium Chloride (0.9 % Sodium Chloride Flush 3 Ml Syringe) 3 ml IVFLUSH QSHIFT [facility] Last Admin: 06/26/21 16:32 Dose: 3 ml Documented by: Trazodone HCl (Trazodone Hcl 50 Mg Tablet) 50 mg PO BEDTIME [facility] Last Admin: 06/25/21 20:50 Dose: 50 mg Documented by: Allergies Allergies Allergy/AdvReac Type Severity Reaction Status Date / Time Penicillins Allergy Severe RASH AND Verified 05/15/20 15:21 ITCHY lisinopril [LISINOPRIL] Allergy Intermediate COUGH, Verified 05/15/20 15:21 tickle cough nitrofurantoin Allergy Unknown UNKNOWN Verified 05/15/20 15:21 [NITROFURANTOIN] ciprofloxacin [From Cipro] AdvReac Severe NAUSEA Verified 05/15/20 15:21 atorvastatin [From Lipitor] AdvReac Mild MUSCLE Verified 05/15/20 15:21 CRAMPS Assessment & Plan Assessment & Plan (1) Poorly controlled type 2 diabetes mellitus: Status: Acute Code(s): E11.65 - Type 2 diabetes mellitus with hyperglycemia (2) H/O recurrent urinary tract infection: Status: Acute Code(s): Z87.440 - Personal history of urinary (tract) infections (3) Altered mental status: Status: Acute Code(s): R41.82 - Altered mental status, unspecified Plan Plan: Will start prozac 10 mg now as stat dose and 10 mg daily for possible SSRI withdrawal and to target sx of anxiety, has hx of being stable on prozac and tolerating this well.? I spent minutes with the patient and/or on the patient floor today, greater than?50% of which was spent counseling/coordinating care. Patient educated on: medication risk/benefits
[2021-06-26] MEDS: FLUoxetine HCl Oral Solution 20 MG/5 ML SOLUTION 10 MG PO (18:14)
[2021-06-26] MEDS: LORazepam 0.5 MG TABLET PO (18:16)
--- NOTE | 2021-06-26 19:34 | PC.NURSE ---
Patient is due to have Zaragoza removed. Family is refusing the removal due to concern of complication from incontinence. Family was educated about risk of infection. Family still is refusing.
--- NOTE | 2021-06-26 19:39 | PC.NURSE ---
Patient expressed signs of suicidal ideation. Sitter was ordered by . Family is refusing sitter to be in the room while family member is in there for privacy. Family is staying overnight with patient. Nurse confirmed with family the risk of the refusal. Family member said that they are very capable of keeping patient safe. Camera is placed in the room and sitter is sitting outside the room doing constant checks on patient.
[2021-06-26 19:58] VITALS: BP 159/67; PULSE 98; RESP 18; TEMP 36.7; O2SAT 100
[2021-06-26 20:07] LABS: Glucose, Whole Blood 334 mg/dL (60-115)
[2021-06-26] MEDS: LORazepam 1 MG TABLET PO (21:42)
[2021-06-26] MEDS: traZODone HCL 50 MG TABLET PO (21:42)
[2021-06-26] MEDS: Insulin Glargine,Hum.rec.anlog 100 UNIT/ML 10 ML VIAL 20 UNIT SUBCUT (21:43)
[2021-06-27] VITALS: BP 141/74; PULSE 98; RESP 17; TEMP 36.7; O2SAT 95
[2021-06-27 04:00] VITALS: BP 148/62; PULSE 85; RESP 18; TEMP 36.7; O2SAT 98
[2021-06-27] MEDS: Levothyroxine Sodium 125 MCG TABLET PO (05:41)
[2021-06-27 06:59] VITALS: BP 157/74; PULSE 98; RESP 18; TEMP 36.7; O2SAT 98
[2021-06-27 07:07] LABS: Glucose, Whole Blood 266 mg/dL (60-115)
[2021-06-27] MEDS: buPROPion HCl XL 300 MG TAB.ER.24H PO (07:45)
[2021-06-27] MEDS: Heparin Sodium,Porcine 5,000 UNIT/ML VIAL 5000 UNIT SUBCUT ×3 (07:45→23:38)
[2021-06-27] MEDS: Insulin Lispro 100 UNIT/ML 3 ML VIAL SUBCUT ×4 (07:46→21:51)
[2021-06-27] MEDS: 0.9 % Sodium Chloride Flush 3 ML SYRINGE IVFLUSH ×3 (07:53→21:55)
[2021-06-27 11:10] VITALS: BP 134/60; PULSE 97; RESP 18; TEMP 36.6; O2SAT 96
[2021-06-27 11:27] LABS: Glucose, Whole Blood 288 mg/dL (60-115)
--- NOTE | 2021-06-27 11:33 | HO.PM.IMPN ---
Subjective Subjective Date of Service: 06/27/21 Interval History: Very withdrawn/depressed, does not recognize me Review of Systems Review of Systems: Yes Unobtainable due to mental status Physical Exam Vital Signs: Vital Signs: Last Vital Signs Temp 97.8 F 06/27/21 11:10 Pulse 97 06/27/21 11:10 Resp 18 06/27/21 11:10 BP 134/60 06/27/21 11:10 Pulse Ox 96 06/27/21 11:10 BMI result Body Mass Index 33.0 Gen: in no acute distress HEENT: sclera anicteric, moist mucus membranes Neck: supple Lungs: clear to auscultation bilaterally Heart: regular rate and rhythm, no murmurs Abd: soft, non-distended, suprapubic tenderness resolved Ext: no edema Skin: warm/well-perfused Neuro: alert but lethargic Psych: restricted affect Objective Data Active Medications Acetaminophen (Acetaminophen 325 Mg Tablet) 650 mg PO Q6H PRN PRN Reason: Pain, Mild (Pain Scale 1-3) Last Admin: 06/25/21 03:17 Dose: 650 mg Documented by: NURIA Bupropion HCl (Bupropion Hcl Xl 300 Mg Tab.Er.24h) 300 mg PO DAILY [facility] Last Admin: 06/27/21 07:45 Dose: 300 mg Documented by: STEPHANIE Dextrose (Dextrose 50 % 25 Gm/50 Ml Syringe) 25 gm IVPUSH Q15M PRN; Protocol PRN Reason: per Hypoglycemia Standing Ord. Glucose (Glucose Gel 15 Gm Gel..Gram.) 15 gm PO Q15M PRN; Protocol PRN Reason: per Hypoglycemia Standing Ord. Heparin Sodium (Porcine) (Heparin Sodium,Porcine 5,000 Unit/Ml Vial) 5,000 unit SUBCUT Q8H [facility] Last Admin: 06/27/21 07:45 Dose: 5,000 unit Documented by: STEPHANIE Ceftriaxone Sodium 1 gm/ (Sodium Chloride) 50 mls @ 100 mls/hr IV Q24H [facility] Last Infusion: 06/27/21 00:57 Dose: 0 mls/hr Documented by: SHIMA Insulin Glargine (Insulin Glargine,Hum.Rec.Anlog 100 Unit/Ml 10 Ml Vial) 24 unit SUBCUT BEDTIME [facility] Insulin Human Lispro (Insulin Lispro 100 Unit/Ml 3 Ml Vial) 0 unit SUBCUT QIDACHS [facility]; Protocol Last Admin: 06/27/21 07:46 Dose: 6 unit Documented by: STEPHANIE Levothyroxine Sodium (Levothyroxine Sodium 125 Mcg Tablet) 125 mcg PO DAILY@0630 [facility] Last Admin: 06/27/21 05:41 Dose: 125 mcg Documented by: SHIMA Loperamide HCl (Loperamide Hcl 2 Mg Capsule) 2 mg PO BID PRN PRN Reason: Loose Stool Lorazepam (Lorazepam 0.5 Mg Tablet) 0.5 mg PO BID PRN PRN Reason: anxiety Last Admin: 06/25/21 03:17 Dose: 0.5 mg Documented by: NURIA Lorazepam (Lorazepam 1 Mg Tablet) 1 mg PO BEDTIME PRN PRN Reason: Sleep Last Admin: 06/26/21 21:42 Dose: 1 mg Documented by: SHIMA Melatonin (Melatonin 3 Mg Tablet) 6 mg PO BEDTIME PRN PRN Reason: Insomnia Last Admin: 06/25/21 03:17 Dose: 6 mg Documented by: NURIA Senna (Sennosides 8.6 Mg Tablet) 17.2 mg PO BEDTIME PRN PRN Reason: Constipation Sodium Chloride (0.9 % Sodium Chloride Flush 3 Ml Syringe) 3 ml IVFLUSH QSHIFT [facility] Last Admin: 06/27/21 07:53 Dose: 3 ml Documented by: STEPHANIE Trazodone HCl (Trazodone Hcl 50 Mg Tablet) 50 mg PO BEDTIME [facility] Last Admin: 06/26/21 21:42 Dose: 50 mg Documented by: SHIMA Labs CBC & Chem 7: 06/26/21 08:42 06/26/21 08:42 Labs: Laboratory Results - last 24 hr 06/26/21 06/26/21 06/26/21 11:57 15:36 20:04 POC Glucose 293 H 326 H 334 H 06/27/21 06/27/21 07:03 11:14 POC Glucose 266 H 288 H Microbiology Microbiology Results: Microbiology 06/24/21 19:13 Urine Culture - Final Urine Catheterized - Zaragoza Catheter Pluralibacter gergoviae 06/24/21 19:23 Blood Culture - Preliminary Blood - Venous No growth after 48 hours. 06/24/21 18:41 Blood Culture - Preliminary Blood - Venous No growth after 48 hours. Organism 1 Pluralibacter gergoviae Quant 10,000 to 50,000 cfu/mL Ry whitlock [facility] RX --------- --- Ceftriaxone <=1 S Gentamicin <=1 S Levofloxacin <=0.12 S Nitrofurantoin <=16 S Trimethoprim/Sulfamethoxazole <=20 S Assessment and Plan (1) Acute UTI: Status: Acute (2) Altered mental status: Status: Acute Plan hospital d#4 86yo F with CKD3, DM2, recurrent UTI, HTN brought in with AMS in setting of UTI # encephalopathy due to infection vs. profound depression - CT head unrevealing - UTI under treatemtn # UTI, Pluralibacter gergoviae - ceftriaxone d#4, change to cefuroxime to complete 7d course # DM2. A1c 9.8, with hyperglycemia - correction-dose lispro, increase glargine # hypothyroid - continue LT4, TSH therapeutic # severe depression - trazodone, lorazepam, bupropion - started on fluoxetine by psychiatrist yesterday; discuss disposition # obesity - not morbid # VTE ppx - UFH # dispo - STR vs [place]-psych In my clinical judgment, the patient requires continued hospitalization for the following reasons: placement Quality Stroke Does the patient have a stroke diagnosis?: No VTE Prior VTE?: No VTE Risk Level:: Medical - moderate - high VTE Device Contraindication: Treatment Not Indicated VTE Drug Contraindication: N/A - Med Ordered
--- NOTE | 2021-06-27 13:07 | MHC.CARE ---
CARE Team met with Pt secondary to consult placed for severe depression, medically cleared . Pt was accompanied by her daughter during the consult who provided the majority of the information. Pt was observed resting in bed. Pts daughter reported Pt has a longstanding history of depression and has been treated on antidepressants throughout her adult life. Pt had medication change which was ultimately ineffective and Pt was abruptly taken off SSRI and likely caused withdrawal. Pt has also had a chronic UTI for the past two years ? Pt is not diagnosed with dementia though has short term memory impairment and Pts daughter is the HCP. Pt daughter reported she does want her mom psychiatrically hospitalized at this time and does have mental health safety concerns. CARE Team communicated this information to Dr. Tripathi. Tentative plan for Mireya Back APRN to meet with family regarding medication recommendations then STR placement through CM .
--- NOTE | 2021-06-27 14:20 | PC.NURSE ---
Entered room to reposition patient , daughter states she is a nurse that works in a medical office across the street. States she prefers this nurse leave patient as she needs her sleep, she had not slept in 2 days. She is also refusing to allow this nurse to pull out the walton. Informed her of increased risk of infection with walton in place but patient daughter insists it stay in one more day. She is also concerned about patient losing her legs and wants to have patient gotten out of bed later today. Will request PT edson from .
[2021-06-27 16:00] VITALS: BP 136/73; PULSE 98; RESP 18; TEMP 36.5; O2SAT 98
[2021-06-27 16:08] LABS: Glucose, Whole Blood 322 mg/dL (60-115)
--- NOTE | 2021-06-27 16:12 | MHC.CM.PN ---
PT MEDICALLY CLEARED FOR D/C, CM RECEIVED MESSAGE FROM [facility] THAT THEY COULD TAKE HER TONIGHT OR TOMORROW, CM MET W/PT AND FAMILY AT BEDSIDE AND DTR IS NOT AGREEABLE FOR D/C TONIGHT AND WANTS TO SPEAK W/PSYCH, HOSPITALIST AND PSYCH NOTIFIED VIA TIGER.
[2021-06-27 16:40] LABS: COVID-19 Test Negative (Negative)
[2021-06-27 21:41] LABS: Glucose, Whole Blood 365 mg/dL (60-115)
[2021-06-27] MEDS: traZODone HCL 50 MG TABLET PO (21:50)
[2021-06-27] MEDS: Insulin Glargine,Hum.rec.anlog 100 UNIT/ML 10 ML VIAL 24 UNIT SUBCUT (21:51)
[2021-06-27] MEDS: cefTRIAXone sodium 1 GM in 0.9 % Sodium Chloride 50 ML IV (23:38)
[2021-06-27] MEDS: LORazepam 1 MG TABLET PO (23:42)
[2021-06-27] MEDS: Acetaminophen 325 MG TABLET 650 MG PO (23:42)
[2021-06-28] VITALS: BP 159/77; PULSE 94; RESP 20; TEMP 36.6; O2SAT 96
[2021-06-28 04:00] VITALS: RESP 18
[2021-06-28] MEDS: Levothyroxine Sodium 125 MCG TABLET PO (05:52)
[2021-06-28 08:00] VITALS: BP 139/74; PULSE 92; RESP 18; TEMP 36; O2SAT 96
[2021-06-28 08:08] LABS: Glucose, Whole Blood 238 mg/dL (60-115)
[2021-06-28] MEDS: 0.9 % Sodium Chloride Flush 3 ML SYRINGE IVFLUSH (08:21)
[2021-06-28] MEDS: Insulin Lispro 100 UNIT/ML 3 ML VIAL SUBCUT ×2 (08:21→12:22)
[2021-06-28] MEDS: FLUoxetine HCl 10 MG CAPSULE PO (08:21)
[2021-06-28] MEDS: Heparin Sodium,Porcine 5,000 UNIT/ML VIAL 5000 UNIT SUBCUT (08:21)
[2021-06-28] MEDS: buPROPion HCl XL 300 MG TAB.ER.24H PO (08:21)
--- NOTE | 2021-06-28 10:53 | PM.DS ---
DS: Providers Provider Date of Service: 06/28/21 Date of admission: 06/24/21 23:33 Date of discharge: 06/28/21 Primary care physician: Virgil Saldana MD Consults: 06/26/21 16:21 Consult to Psychiatry Routine Consulting Provider: Psych Covering Reason for consultation: geriatric depression, recently taken off Lexapro by PCP 06/27/21 11:55 Consult to Care Team Stat Comment: Reason for consultation: severe depression, medically cleared Consult to Crisis Stat Reason for consultation: severe depression, medically cleared DS: Diagnosis Discharge Diagnosis (1) Altered mental status: Status: Acute (2) Acute UTI: Status: Acute (3) Depression: Status: Acute (4) Type 2 diabetes mellitus with hyperglycemia: Status: Acute DS: Summary Hospital Course Hospital Course: from admission H+P by hospitalist Kris Ward, 06/24/21: 86-year-old female with a past medical history of hypertension, hyperlipidemia, diabetes, history of recurrent UTI, 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 Most of the history obtained from the patient's daughter at bedside.? Reportedly patient has been having UTI with microscopic hematuria and finished a course of antibiotics; recently started on nitrofurantoin by her PCP.? But over the past 2 days she has been not herself and today and patient was noted to be very confused and agitated; hence brought to the hospital for further evaluation.? Denies any chest pain or palpitations Denies patient complaining of any numbness tingling or focal weakness.? Denies any fevers.? Reported that patient intermittently complains of lower abdominal discomfort.? Denies any hematuria.? Review of all other systems is negative ER course: Per ER team patient noted to have abnormal urinalysis; mildly confused; leg given Levaquin.? Admitted to the hospital for further management. This 86yo F with CKD3, DM2, recurrent UTI, HTN was brought in with AMS in setting of UTI. She grew Pluralibacter gergoviae from urine. She was treated with ceftriaxone for 4 days and will complete 3 more days of treatment with cefuroxime upon discharge. She also developed worsening depression and was seen by Psychiatry. She had recently had escitalopram discontinued. She was started on fluoxetine and referred to Geriatric Psychiatry as an outpatient. Basal insulin was increased due to hyperglycemia. HbA1c was 9.8. She was seen by PT and discharged to [facility] for short-term rehabilitation. Time Spent with Patient Time attestation: Total time spent providing and/or coordinating discharge services: Discharge coordination time: Greater than 30 minutes Quality: Safe Use of Opioids Does Pt have an Active Cancer Diagnosis on the Problem List?: No Quality: Stroke Does the patient have a stroke diagnosis?: No Physical Exam Vital Signs: Vital Signs: Last Vital Signs Temp 96.8 F 06/28/21 08:00 Pulse 92 06/28/21 08:00 Resp 18 06/28/21 08:00 BP 139/74 06/28/21 08:00 Pulse Ox 96 06/28/21 08:00 BMI result Body Mass Index 33.0 Gen: in no acute distress HEENT: sclera anicteric, moist mucus membranes Neck: supple Lungs: clear to auscultation bilaterally Heart: regular rate and rhythm, no murmurs Abd: soft, non-distended, suprapubic tenderness resolved Ext: no edema Skin: warm/well-perfused Neuro: alert, oriented to self/place Psych: restricted affect DS: Data Data Completed and Pending Completed studies during hospitalization [Text1]: Laboratory Results WBC 8.0 X10*3/uL (4.8-10.8) 06/26/21 08:42 RBC 4.25 X10*6/uL (4.20-5.50) 06/26/21 08:42 Hgb 12.6 g/dl (12.0-16.0) 06/26/21 08:42 Hct 39.0 % (37.0-47.0) 06/26/21 08:42 MCV 91.8 fL (80.0-98.0) 06/26/21 08:42 MCH 29.6 pg (27.0-33.0) 06/26/21 08:42 MCHC 32.3 g/dl (31.0-35.0) 06/26/21 08:42 RDW 14.1 % (11.0-16.0) 06/26/21 08:42 Plt Count 272 X10*3/uL (160-400) 06/26/21 08:42 MPV 8.4 fL (9.4-12.3) L 06/26/21 08:42 Immature Gran % (Auto) 0.7 % (0.0-0.4) H 06/25/21 07:04 Neut % (Auto) 69.7 % (45-73) 06/25/21 07:04 Lymph % (Auto) 18.0 % (20-40) L 06/25/21 07:04 Desha % (Auto) 8.2 % (2-11) 06/25/21 07:04 Eos % (Auto) 2.9 % (0-4) 06/25/21 07:04 Baso % (Auto) 0.5 % (0-2) 06/25/21 07:04 Lymph # (Auto) 1.5 X10*3/uL (1.2-4.9) 06/25/21 07:04 Desha # (Auto) 0.7 X10*3/uL (0.1-1.2) 06/25/21 07:04 Eos # (Auto) 0.2 X10*3/uL (0.0-0.4) 06/25/21 07:04 Baso # (Auto) 0.0 X10*3/uL (0.0-0.2) 06/25/21 07:04 Abs Immat Gran (auto) 0.06 X10*3/uL (0.00-0.03) H 06/25/21 07:04 Absolute Neuts (auto) 5.9 x10*3/uL (2.0-8.3) 06/25/21 07:04 Absolute Nucleated RBC 0.000 X10*3/uL (0.0-0.012) 06/26/21 08:42 Nucleated RBC % (auto) 0.0 /100WBC (0.0-0.2) 06/26/21 08:42 Sodium 137 mmol/L (135-145) 06/26/21 08:42 Potassium 4.4 mmol/L (3.3-5.1) 06/26/21 08:42 Chloride 106 mmol/L (96-108) 06/26/21 08:42 Carbon Dioxide 21 mmol/L (22-29) L 06/26/21 08:42 Anion Gap 14 (12-20) 06/26/21 08:42 BUN 22 mg/dL (9-16) H 06/26/21 08:42 Creatinine 1.40 mg/dL (0.5-1.4) 06/26/21 08:42 Estim Creat Clear Calc 28.6 06/26/21 08:42 Estimated GFR 36 06/26/21 08:42 POC Glucose 238 mg/dL (60-115) H 06/28/21 08:01 Random Glucose 344 mg/dL (60-115) H 06/26/21 08:42 Estimat Average Glucose 235 mg/dL 06/26/21 08:42 Hemoglobin A1c % 9.8 % 06/26/21 08:42 Lactic Acid 1.7 mmol/L (0.5-2.0) 06/24/21 18:13 Calcium 9.3 mg/dL (8.4-10.2) 06/26/21 08:42 Total Bilirubin 0.3 mg/dL (0.0-1.0) 06/24/21 18:13 Direct Bilirubin 0.2 mg/dL (0.0-0.5) 06/24/21 18:13 AST 17 U/L (5-31) 06/24/21 18:13 ALT 18 U/L (0-31) 06/24/21 18:13 Alkaline Phosphatase 109 U/L (39-117) D 06/24/21 18:13 Troponin I High Sens 6.6 ng/L (<3.5-17.0) 06/24/21 18:13 B-Natriuretic Peptide 68 pg/mL (<100) 06/24/21 18:13 Total Protein 7.2 g/dL (6.5-8.0) 06/24/21 18:13 Albumin 3.8 g/dL (3.5-5.0) 06/24/21 18:13 Lipase 57 U/L (8-78) 06/24/21 18:13 Vitamin B12 505 pg/mL (200-900) 06/25/21 07:04 Folate 6.4 ng/mL (> or = 4.0) 06/25/21 07:04 TSH 0.59 uIU/mL (0.32-4.0) 06/25/21 07:04 Urine Color YELLOW 06/24/21 19:13 Urine Appearance TURBID 06/24/21 19:13 Urine pH 5.5 (5.0-8.0) 06/24/21 19:13 Ur Specific [place] 1.010 (1.005-1.025) 06/24/21 19:13 Urine Protein 1+ MG/DL (NEG-TRACE) H 06/24/21 19:13 Urine Glucose (UA) NEG MG/DL (NEG) 06/24/21 19:13 Urine Ketones NEG MG/DL (NEG) 06/24/21 19:13 Urine Blood 3+ (NEG) H 06/24/21 19:13 Urine Nitrite NEG (NEG) 06/24/21 19:13 Ur Leukocyte Esterase 3+ (NEG) H 06/24/21 19:13 Urine RBC 5-9 /HPF (0) H 06/24/21 19:13 Urine WBC TNTC /HPF (0-4) H 06/24/21 19:13 Urine WBC Clumps NOTED 06/24/21 19:13 Ur Squamous Epith Cells TRACE /LPF 06/24/21 19:13 Urine Bacteria TRACE /LPF 06/24/21 19:13 COVID-19 (ARASELI) Negative (Negative) 06/27/21 16:10 COVID-19 Clin Com See Note 06/27/21 16:10 Impressions Chest X-Ray 06/24/21 18:23 IMPRESSION: No acute abnormality of the chest. Head CT 06/25/21 11:03 IMPRESSION: No acute intracranial pathology. Stable findings of microangiopathy and atrophy. Microbiology 06/24/21 19:13 Urine Catheterized - Zaragoza Catheter Urine Culture - Final Pluralibacter gergoviae 06/24/21 19:23 Blood - Venous Blood Culture - Preliminary No growth after 48 hours. 06/24/21 18:41 Blood - Venous Blood Culture - Preliminary No growth after 48 hours. Discharge Plan Discharge Patient Disposition: Xfer [facility] Discharge Diagnosis: encephalopathy, urinary tract infection, depression, type 2 diabetes with hyperglycemia Referrals: Counseling, [facility] [Other] - 1 Week Virgil Saldnaa MD [Primary Care Provider] - 1 Week Discharge Medications: New Lantus U-100 Insulin 100 unit/mL Solution 28 unit subcut BEDTIME Qty: 10 0RF fluoxetine 10 mg Capsule 10 mg PO DAILY Qty: 30 0RF Continued levothyroxine 125 mcg tablet 1 tab PO DAILY 0RF lorazepam 0.5 mg tablet 0.5 mg PO BID PRN (Reason: anxiety) 0RF trazodone 50 mg tablet 50 mg PO BEDTIME 0RF bupropion HCl 150 mg tablet sustained-release 12 hr 150 mg PO BID 0RF (DME) pen needle, diabetic 32 gauge x / needle See Rx Instructions ea .ROUTE QID Qty: 50 0RF Rx Instructions: As directed lorazepam 1 mg tablet 1 mg PO BEDTIME PRN (Reason: Sleep) 0RF insulin lispro [Humalog U-100 Insulin] 100 unit/mL solution 3 - 6 sliding scale dose subcut TID 0RF melatonin 3 mg capsule 3 mg PO BEDTIME PRN (Reason: Sleep) 0RF loperamide [Imodium A-D] 2 mg capsule 2 mg PO BID PRN (Reason: Loose Stool) 0RF Held nitrofurantoin macrocrystal 50 mg capsule 1 cap PO DAILY 0RF Hold Instructions: Resume on 07/02/21. Discontinued insulin glargine 100 unit/mL (3 mL) insulin pen 20 unit subcut BEDTIME 0RF Discharge Orders: Discharge Order (Routine); Ordered 06/28/21 Ordered By: Betzaida Tripathi Diet: advance to usual diet and diabetic diet Activity on Discharge: As tolerated Stand Alone Forms: Patient Portal Discharge page Care Plan Goals: cure of infection mental health Health Concerns: encephalopathy, urinary tract infection, depression, type 2 diabetes with hyperglycemia Plan of Treatment: cefuroxime 500 mg twice daily x 3 days fluoxetine 10 mg daily; [place] [facility] [place] increase Lantus to 28 units see primary care doctor after discharge from rehabilitation Assessment: See Discharge Summary Patient Instructions: Urinary Tract Infection in Older Adults (DC)
[2021-06-28 12:00] VITALS: BP 136/68; PULSE 97; RESP 18; TEMP 36.4; O2SAT 95
[2021-06-28 12:18] LABS: Glucose, Whole Blood 244 mg/dL (60-115)
--- NOTE | 2021-06-28 12:28 | MHC.CM.PN ---
Addendum entered by Jessa Maciel 06/28/21 15:50: CM RECEIVED A CALL FROM PTS DAUGHTER, RAMIRO, WHO REPORTED THEY WERE AT [facility] AND SHE DID NOT WANT HER MOTHER TO STAY. SHE REPORTS NO ONE WAS THERE TO GREET THEM WHEN THEY ARRIVED AND ONLY CAME IN TO TAKE HER VITALS SHE REPORTS IT IS DECREPIT AND SMELLS LIKE URINE. SHE REQUESTED A REFERRAL TO [facility]. CM EXPLAINED A REFERRAL WAS MADE AND THEY DID NOT OFFER A BED. SHE REPORTS THE CM BEFORE HAD INDICATED THEY COULD TRY AGAIN WEDNESDAY OF THE PT WAS STILL HERE. CM EXPLAINED THAT MAY HAVE BEEN THE CASE HOWEVER THERE IS NO WAY FOR THIS CM TO KNOW IF THERE WOULD HAVE BEEN A BED OR IF THERE WOULD BE AN OFFER. CM ALSO EXPLAINED PT WOULD HAVE TO BE IN THE SYSTEM FOR NEW REFERRALS TO BE MADE. PTS DAUGHTER STATED SO NOW YOU ARE PASSING THE CRUZ . CM EXPLAINED AGAIN THE PT IS NOT LONGER ADMITTED HERE SO THIS CM CANNOT MAKE REFERRALS OR SET UP TRANSPORT FOR HER RAMIRO ACCUSED T/W OF GETTING SMART . CM EXPLAINED SHE WAS BEING RUDE AND THERE WAS NO FURTHER HELP THAT COULD BE OFFERED WHILE THE PT WAS NOT HERE. CM DID INFORM HER SHE COULD TALK TO STAFF AT THE SNF TO HAVE THE PT TRANSFERRED TO THE ED OR ANOTHER SNF Addendum entered by Jessa Maciel 06/28/21 12:42: [facility] REQUESTING A HCP. PTS DAUGHTER REPORTS SHE DOES NOT HAVE A COPY BUT THERE IS ONE AT PTS PCP. PT IS AGREEABLE TO DOING A NEW ONE TODAY. HCP COMPLETED NAMING DAUGHTERS CARLOS MANUEL AND EMMA HER PRIMARY AND ALTERNATE AGENTS RESPECTIVELY Original Note: CM MET WITH PTS DAUGHTER, RAMIRO, AT BEDSIDE SHE IS AWARE PT WILL DC TO [facility] STR AT 1400 HOURS TODAY VIA BLS ALL QUESTIONS WERE ANSWERED AND SHE IS AGREEABLE TO DC PLAN/TIME MEDICARE RIGHTS DELIVERED 06/26/21
--- NOTE | 2021-06-30 13:11 | MHC.CM.PN ---
[facility] ATTEMPTED TO GET A COPY OF THE HCP SIGNED BY PT ON WEDNESDAY FROM [facility], HOWEVER, IT IS NOT YET IN THE SYSTEM. MARGY CALLED DR AGUILERA OFFICE ([phone]) AND REQUESTED A COPY BE FAXED TO [facility]Y OFFICE
== END 2021-06-28 14:39 | disposition skilled nursing facility (03) | DRG 689 ==
LOC: HO.ED 20:41 → HO.EDOVER 23:38 → HO.S3 06-26 03:38
PROVIDERS: Admitting Provider Hospitalist; Emergency Provider Emergency Medicine; PCP Internal Medicine; Visit Provider Family Medicine
DX: N39.0 Urinary tract infection, site not specified (principal); G92.8 Other toxic encephalopathy; I12.9 Hypertensive chronic kidney disease with stage 1 through stage 4 chronic kidney disease, or unspecified chronic kidney disease; Z66 Do not resuscitate; E78.5 Hyperlipidemia, unspecified; E03.9 Hypothyroidism, unspecified; F32.A Depression, unspecified; N18.30 Chronic kidney disease, stage 3 unspecified; E11.22 Type 2 diabetes mellitus with diabetic chronic kidney disease; E66.9 Obesity, unspecified; E11.65 Type 2 diabetes mellitus with hyperglycemia; Z68.33 Body mass index [BMI] 33.0-33.9, adult; Z20.822 Contact with and (suspected) exposure to COVID-19; Z87.440 Personal history of urinary (tract) infections; Z88.0 Allergy status to penicillin; Z88.1 Allergy status to other antibiotic agents; Z88.8 Allergy status to other drugs, medicaments and biological substances; Z79.4 Long term (current) use of insulin; Z79.890 Hormone replacement therapy; Z79.899 Other long term (current) drug therapy
CPT/HCPCS: 36415; 70450; 71045; 80048; 80076; 81001; 82607; 82746; 82947; 83036; 83605; 83690; 83880; 84443; 84484; 85025; 85027; 87040; 87086; 87088; 87186; 87635; 93005; 96361; 96374; 96375; 97162; 99285; C1758; J0696; J1956; J2270; J2405

== ENCOUNTER 2021-07-17 14:08 | Emergency (ER) | payer MEDICARE, SELFPAY ==
[2021-07-17 14:28] VITALS: BP 127/57; BP 142/74; PULSE 101; PULSE 104; RESP 16; TEMP 36.8; O2SAT 97; BMI 32.0
[2021-07-17 14:38] LABS: Glucose, Whole Blood 420 mg/dL (60-115)
--- NOTE | 2021-07-17 14:57 | ED_ITS ---
HPI - Recheck/Abnormal Lab/Rx General Chief Complaint: Recheck/Abnormal Lab/Rx Stated Complaint: ABN LABS,WEAKNESS FROM SNF PER EMS Time Seen by Provider: 07/17/21 14:24 Source: patient and EMS Mode of arrival: EMS Limitations: no limitations History of Present Illness HPI narrative: Patient presents to the emergency department via EMS transfer from [facility]. Patient states that she is here today because she has tired and has been incontinent of feces for 2 days. Report from EMS is that she was tra nsferred here for concern of trending glucosuria. Patient is a vague historian, she is answering yes/no questions, oriented to person place and time but disoriented to event. Has no further complaints. Related Data Home Medications Medication Instructions Recorded Confirmed bupropion HCl 150 mg tablet,12 hr 150 mg PO BID 05/15/20 06/24/21 sustained-release lorazepam 0.5 mg tablet 0.5 mg PO BID PRN 05/15/20 06/24/21 lorazepam 1 mg tablet 1 mg PO BEDTIME PRN 05/15/20 06/24/21 pen needle, diabetic 32 gauge x #50 ea 05/15/20 05/15/20 trazodone 50 mg tablet 50 mg PO BEDTIME 05/15/20 06/24/21 insulin lispro 100 unit/mL 3 - 6 sliding scale dose SUBCUT TID 06/18/21 06/24/21 subcutaneous solution (Humalog U-100 Insulin) loperamide 2 mg capsule (Imodium 2 mg PO BID PRN cap 06/18/21 06/24/21 A-D) melatonin 3 mg capsule 3 mg PO BEDTIME PRN 06/18/21 06/24/21 levothyroxine 125 mcg tablet 1 tab PO DAILY 06/24/21 06/24/21 nitrofurantoin macrocrystal 50 mg 1 cap PO DAILY 06/24/21 06/24/21 capsule Previous Rx's Medication Instructions Recorded fluoxetine 10 mg capsule 10 mg PO DAILY #30 cap 06/28/21 insulin glargine 100 unit/mL 28 unit (0.28 mL) SUBCUT BEDTIME 06/28/21 subcutaneous solution (Lantus #10 ml U-100 Insulin) Allergies Allergy/AdvReac Type Severity Reaction Status Date / Time Penicillins Allergy Severe RASH AND Verified 05/15/20 15:21 ITCHY lisinopril [LISINOPRIL] Allergy Intermediate COUGH, Verified 05/15/20 15:21 tickle cough nitrofurantoin Allergy Unknown UNKNOWN Verified 05/15/20 15:21 [NITROFURANTOIN] ciprofloxacin [From Cipro] AdvReac Severe NAUSEA Verified 05/15/20 15:21 atorvastatin [From Lipitor] AdvReac Mild MUSCLE Verified 05/15/20 15:21 CRAMPS Review of Systems Review of Systems: Constitutional: No weight loss, fever, chills, weakness. Positive fatigue. Skin: No rash or itching. Cardiovascular: No chest pain, chest pressure or chest discomfort. No palpitations or pedal edema. Respiratory: No shortness of breath, cough or sputum production. Gastrointestinal: No anorexia, nausea, vomiting or diarrhea. No abdominal pain or blood in stool. Positive stool incontinence Genitourinary: No burning micturition. No urinary frequency or incontinence. Musculoskeletal: No muscle pain, back pain, joint pain or stiffness. Psychiatric: No depression or anxiety. Yes all other systems are reviewed and are negative [facility] Past Medical History Attestation statement: The following information was validated with the patient. Source: old records reviewed Medical History Diabetes mellitus type 2 in nonobese H/O recurrent urinary tract infection History of right breast cancer Hypercholesterolemia Hypertension Skin lesion of chest wall Urinary incontinence Surgical History History of lumpectomy of right breast History of lymph node biopsy Family History Family History Father Colon cancer Mother Diabetes Social History Social History Household Members: Family Housing: House Alcohol intake: never Patient Tobacco Use Status: Never used Tobacco Advance Directives: No Advance Directives Information Provided: No service: No Current occupational status: retired Physical Exam Vital Signs: Vital Signs: Last Vital Signs Temp 98.3 F 07/17/21 14:28 Pulse 68 07/17/21 18:04 Resp 16 07/17/21 18:04 BP 128/68 07/17/21 18:04 Pulse Ox 97 07/17/21 18:04 BMI result Body Mass Index 32.0 Vital signs have been reviewed as normal and appeared to be correct. Blood pressure normal.? Heart rate normal.? Respiration rate normal. Temperature normal.? Oxygen saturation normal. Appearance: Alert.?Oriented to person, place and time. Disoriented to event. No acute distress.?Normal affect. Eyes: Pupils equal, round and reactive to light.? ENT: Pharynx normal.?? Neck: Normal inspection.? Neck supple.?? CVS: Heart sounds normal. Normal heart rate and rhythm.? Pulses normal.?? Respiratory: No respiratory distress.? Lung sounds clear to auscultation bilaterally?? Abdomen: Soft and non-tender. Normoactive bowel sounds.?? Skin: Skin warm and dry.? Normal skin color.? ? Extremities: No lower extremity edema.? No calf ttp? Neuro: Moves all extremities spontaneously. Sensation intact bilaterally. CN II- XII intact. No focal neuro deficits. Ambulates with normal steady gait. Course Course Course Narrative: Patient is an 86-year-old female with a past medical history of type 2 diabetes, breast cancer status post lumpectomy in 2017, hypercholesterolemia, hypertension. She presents emergency department for evaluation of glucosuria. Review of records from [facility] indicates trending of urine glucose levels, on 07/07 level 500, 07/16 level greater than 1000, all of which had no ketonuria, but therefore was transferred for further evaluation. Patient with no acute complaints other than feeling tired. When asked review of systems they are grossly negative. She is alert and oriented to person place and time but disoriented to event. Will obtain CBC, CMP, acetone, VBG to assess for DKA, point care glucose is 420 on arrival to ED. is overall well-appearing, hemodynamically stable, benign abdominal exam. Reevaluation(s) Reevaluation #1: CBC reveals a very mild leukocytosis WBC 11.7 otherwise overall unremarkable. VBG is normal, pH 7.41. PCO2 36, bicarb 23. Serum sodium level of 130, however secondary to hyperglycemia with glucose 440, corrected sodium level of 135 which is normal, anion gap normal. Acetone negative. BUN and creatinine 22 and 1.47 respectively, consistent with baseline labs. Patient will receive insulin lispro 10 units subcutaneous. Neck consistent with DKA. No acute complaints. Plan for patient to be discharged back to longterm facility. Time: 17:15 MDM - Recheck/Abnormal Lab/Rx Medical Records Attestation: I reviewed the patient's medical records. Lab Data Attestation: I reviewed the patient's lab results. Result diagrams: 07/17/21 15:23 07/17/21 15:23 Labs: Lab Results 07/17/21 07/17/21 07/17/21 Range/Units 14:34 15:23 15:23 WBC 11.7 H (4.8-10.8) X10*3/uL RBC 4.38 (4.20-5.50) X10*6/uL Hgb 12.5 (12.0-16.0) g/dl Hct 39.4 (37.0-47.0) % MCV 90.0 (80.0-98.0) fL MCH 28.5 (27.0-33.0) pg MCHC 31.7 (31.0-35.0) g/dl RDW 13.3 (11.0-16.0) % Plt Count 363 D (160-400) X10*3/uL MPV 8.4 L (9.4-12.3) fL Immature Gran % (Auto) 0.8 H (0.0-0.4) % Neut % (Auto) 78.3 H (45-73) % Lymph % (Auto) 11.3 L (20-40) % [place] % (Auto) 7.1 (2-11) % Eos % (Auto) 2.1 (0-4) % Baso % (Auto) 0.4 (0-2) % Lymph # (Auto) 1.3 (1.2-4.9) X10*3/uL [place] # (Auto) 0.8 (0.1-1.2) X10*3/uL Eos # (Auto) 0.3 (0.0-0.4) X10*3/uL Baso # (Auto) 0.1 (0.0-0.2) X10*3/uL Abs Immat Gran (auto) 0.09 H (0.00-0.03) X10*3/uL Absolute Neuts (auto) 9.1 H (2.0-8.3) x10*3/uL Absolute Nucleated RBC 0.000 (0.0-0.012) X10*3/uL Nucleated RBC % (auto) 0.0 (0.0-0.2) /100WBC VBG pH (7.32-7.43) VBG pCO2 mmHg VBG pO2 mmHg VBG HCO3 (22-26) mmol/L VBG O2 Saturation % VBG Base Excess mmol/L Sodium 130 L (135-145) mmol/L Potassium 4.3 (3.3-5.1) mmol/L Chloride 98 (96-108) mmol/L Carbon Dioxide 22 (22-29) mmol/L Anion Gap 14 (12-20) BUN 22 H (9-16) mg/dL Creatinine 1.47 H (0.5-1.4) mg/dL Estim Creat Clear Calc 26.8 Estimated GFR 34 POC Glucose 420 H* (60-115) mg/dL Random Glucose 440 H* (60-115) mg/dL Calcium 9.4 (8.4-10.2) mg/dL Magnesium 1.6 (1.6-2.6) mg/dL Total Bilirubin 0.3 (0.0-1.0) mg/dL AST 35 H D (5-31) U/L ALT 44 H (0-31) U/L Alkaline Phosphatase 112 (39-117) U/L Total Protein 6.5 (6.5-8.0) g/dL Albumin 3.3 L (3.5-5.0) g/dL Lipase 57 (8-78) U/L Acetone, Qual Negative (Negative) 07/17/21 Range/Units 15:25 WBC (4.8-10.8) X10*3/uL RBC (4.20-5.50) X10*6/uL Hgb (12.0-16.0) g/dl Hct (37.0-47.0) % MCV (80.0-98.0) fL MCH (27.0-33.0) pg MCHC (31.0-35.0) g/dl RDW (11.0-16.0) % Plt Count (160-400) X10*3/uL MPV (9.4-12.3) fL Immature Gran % (Auto) (0.0-0.4) % Neut % (Auto) (45-73) % Lymph % (Auto) (20-40) % [place] % (Auto) (2-11) % Eos % (Auto) (0-4) % Baso % (Auto) (0-2) % Lymph # (Auto) (1.2-4.9) X10*3/uL [place] # (Auto) (0.1-1.2) X10*3/uL Eos # (Auto) (0.0-0.4) X10*3/uL Baso # (Auto) (0.0-0.2) X10*3/uL Abs Immat Gran (auto) (0.00-0.03) X10*3/uL Absolute Neuts (auto) (2.0-8.3) x10*3/uL Absolute Nucleated RBC (0.0-0.012) X10*3/uL Nucleated RBC % (auto) (0.0-0.2) /100WBC VBG pH 7.41 (7.32-7.43) VBG pCO2 36 mmHg VBG pO2 50 mmHg VBG HCO3 23 (22-26) mmol/L VBG O2 Saturation 76.0 % VBG Base Excess -0.7 mmol/L Sodium (135-145) mmol/L Potassium (3.3-5.1) mmol/L Chloride (96-108) mmol/L Carbon Dioxide (22-29) mmol/L Anion Gap (12-20) BUN (9-16) mg/dL Creatinine (0.5-1.4) mg/dL Estim Creat Clear Calc Estimated GFR POC Glucose (60-115) mg/dL Random Glucose (60-115) mg/dL Calcium (8.4-10.2) mg/dL Magnesium (1.6-2.6) mg/dL Total Bilirubin (0.0-1.0) mg/dL AST (5-31) U/L ALT (0-31) U/L Alkaline Phosphatase (39-117) U/L Total Protein (6.5-8.0) g/dL Albumin (3.5-5.0) g/dL Lipase (8-78) U/L Acetone, Qual (Negative) Discharge Plan Discharge Clinical Impression: Hyperglycemia due to type 2 diabetes mellitus Patient Disposition: Xfer SNF Transfer Details: [facility] Prescriptions: No Action nitrofurantoin macrocrystal 50 mg capsule 1 cap PO DAILY 0RF Hold Instructions: Resume on 07/02/21. levothyroxine 125 mcg tablet 1 tab PO DAILY 0RF Lantus U-100 Insulin 100 unit/mL Solution 28 unit subcut BEDTIME Qty: 10 0RF fluoxetine 10 mg Capsule 10 mg PO DAILY Qty: 30 0RF lorazepam 0.5 mg tablet 0.5 mg PO BID PRN (Reason: anxiety) 0RF trazodone 50 mg tablet 50 mg PO BEDTIME 0RF bupropion HCl 150 mg tablet sustained-release 12 hr 150 mg PO BID 0RF (DME) pen needle, diabetic 32 gauge x / needle See Rx Instructions ea .ROUTE QID Qty: 50 0RF Rx Instructions: As directed lorazepam 1 mg tablet 1 mg PO BEDTIME PRN (Reason: Sleep) 0RF insulin lispro [Humalog U-100 Insulin] 100 unit/mL solution 3 - 6 sliding scale dose subcut TID 0RF melatonin 3 mg capsule 3 mg PO BEDTIME PRN (Reason: Sleep) 0RF loperamide [Imodium A-D] 2 mg capsule 2 mg PO BID PRN (Reason: Loose Stool) 0RF Interventions: ED Discharge Assessment Last Done: 07/17/21 18:46
[2021-07-17 15:28] LABS: MANUAL DIFF FLAG NO
[2021-07-17 15:30] LABS: Basophils Absolute Auto 0.1 X10*3/uL (0.0-0.2); Basophils Percent Auto 0.4 % (0-2); Eosinophils Absolute Auto 0.3 X10*3/uL (0.0-0.4); Eosinophils Percent Auto 2.1 % (0-4); Hematocrit 39.4 % (37.0-47.0); Hemoglobin 12.5 g/dl (12.0-16.0); Imm Gran Abs Auto 0.09 X10*3/uL (0.00-0.03); Imm Gran Pct Auto 0.8 % (0.0-0.4); Lymphocytes Absolute Auto 1.3 X10*3/uL (1.2-4.9); Lymphocytes Percent Auto 11.3 % (20-40); Mean Corpuscular HGB Conc 31.7 g/dl (31.0-35.0); Mean Corpuscular Hemoglobin 28.5 pg (27.0-33.0); Mean Platelet Volume 8.4 fL (9.4-12.3); Monocytes Absolute Auto 0.8 X10*3/uL (0.1-1.2); Monocytes Percent Auto 7.1 % (2-11); Neutrophils Absolute Auto 9.1 x10*3/uL (2.0-8.3); Neutrophils Percent Auto 78.3 % (45-73); Platelet Count 363 X10*3/uL (160-400); Red Blood Count 4.38 X10*6/uL (4.20-5.50); Red Cell Distribution Width 13.3 % (11.0-16.0); White Blood Count 11.7 X10*3/uL (4.8-10.8)
[2021-07-17 15:32] LABS: Venous Blood Gas Refer to POC result
[2021-07-17 15:32] LABS: VBG Base Excess -0.7 mmol/L; VBG HCO3 23 mmol/L (22-26); VBG pCO2 36 mmHg; VBG pH 7.41 (7.32-7.43); VBG pO2 50 mmHg
[2021-07-17 15:35] LABS: Acetone, serum QL Negative (Negative)
[2021-07-17 15:50] LABS: Alanine Aminotransferase 44 U/L (0-31); Albumin Level 3.3 g/dL (3.5-5.0); Alkaline Phosphatase 112 U/L (39-117); Anion Gap 14 (12-20); Aspartate Amino Transferase 35 U/L (5-31); Bilirubin Total 0.3 mg/dL (0.0-1.0); Blood Urea Nitrogen 22 mg/dL (9-16); Calcium 9.4 mg/dL (8.4-10.2); Carbon Dioxide 22 mmol/L (22-29); Chloride 98 mmol/L (96-108); Creatinine Clr Calc Pharmacy 26.8; Estimated Glomerular Filt Rate 34; Glucose Random 440 mg/dL (60-115); Lipase 57 U/L (8-78); Magnesium 1.6 mg/dL (1.6-2.6); Potassium 4.3 mmol/L (3.3-5.1); Sodium 130 mmol/L (135-145); Total Protein 6.5 g/dL (6.5-8.0)
[2021-07-17] MEDS: Insulin Lispro 100 UNIT/ML 3 ML VIAL 10 UNIT SUBCUT (16:35)
[2021-07-17] MEDS: Acetaminophen 325 MG TABLET 650 MG PO (17:54)
--- NOTE | 2021-07-17 17:56 | PC.NURSE ---
Pt medicated as per [facility] orders for chronic pain to L shoulder, plan for DC and ambulance back to facility, family is aware.
[2021-07-17 18:04] VITALS: BP 128/68; PULSE 68; RESP 16; O2SAT 97
[2021-07-17 21:45] LABS: Glucose, Whole Blood 304 mg/dL (60-115)
[2021-07-18 07:20] LABS: Glucose, Whole Blood 268 mg/dL (60-115)
== END 2021-07-17 18:46 | disposition skilled nursing facility (03) ==
PROVIDERS: Nurse Practitioner Family; Emergency Provider Emergency Medicine; PCP Family Medicine
DX: E11.65 Type 2 diabetes mellitus with hyperglycemia (principal); I10 Essential (primary) hypertension; D72.829 Elevated white blood cell count, unspecified
CPT/HCPCS: 36415; 80053; 82009; 82803; 82947; 83690; 83735; 85025; 99283; 99284

== ENCOUNTER → 2021-08-01 10:15 | Outpatient (BNVA) | payer MEDICARE, SELFPAY | PROVIDERS: PCP Family Medicine; Visit Provider Surgery | DX: L98.9 Disorder of the skin and subcutaneous tissue, unspecified (principal); I10 Essential (primary) hypertension; E11.65 Type 2 diabetes mellitus with hyperglycemia; R41.82 Altered mental status, unspecified; Z85.3 Personal history of malignant neoplasm of breast; Z79.4 Long term (current) use of insulin | CPT/HCPCS: 99212 ==